=== PATIENT | male | born 1955 | race Caucasian/White ===

== ENCOUNTER 2023-04-20 14:26 | Emergency (ER) | payer MEDICARE, OTHER, SELFPAY ==
[2023-04-20 14:29] VITALS: BP 91/52; PULSE 103; RESP 16; TEMP 36.4; O2SAT 100; BMI 27.7
--- NOTE | 2023-04-20 14:32 | XR_ITS ---
The [place] [address] Patient Name: STU [place] MRN: [id number] date: 1955 Sex: M Assigned Patient Location: ER Current Patient Location: ED.MAIN Accession/Order Number: [id number] Exam Date: 04/20/2023 14:30 Report Date: 04/20/2023 15:11 At the request of: MIKE RUIZ Procedure: XR hand LT min 3V STUDY: XR wrist LT min 3V, XR hand LT min 3V, [id number], [id number] HISTORY: laceration COMPARISON: None FINDINGS/IMPRESSION: No acute fracture, dislocation, or suspicious osseous lesion. Punctate mildly radiopaque focus projecting over the soft tissues of the radial aspect of the wrist could represent a foreign body versus chronic soft tissue calcification. No other potential radiopaque foreign body demonstrated. Moderate osteoarthritis at the first carpometacarpal joint Electronically authenticated by: SD BLACK Date: 04/20/2023 15:11
--- NOTE | 2023-04-20 14:32 | XR_ITS ---
The [place] [address] Patient Name: STU GARCIA MRN: [id number] date: 1955 Sex: M Assigned Patient Location: ER Current Patient Location: ED.MAIN Accession/Order Number: [id number] Exam Date: 04/20/2023 14:30 Report Date: 04/20/2023 15:11 At the request of: MIKE RUIZ Procedure: XR wrist LT min 3V STUDY: XR wrist LT min 3V, XR hand LT min 3V, [id number], [id number] HISTORY: laceration COMPARISON: None FINDINGS/IMPRESSION: No acute fracture, dislocation, or suspicious osseous lesion. Punctate mildly radiopaque focus projecting over the soft tissues of the radial aspect of the wrist could represent a foreign body versus chronic soft tissue calcification. No other potential radiopaque foreign body demonstrated. Moderate osteoarthritis at the first carpometacarpal joint Electronically authenticated by: SD BLACK Date: 04/20/2023 15:11
--- NOTE | 2023-04-20 14:34 | ED_ITS ---
HPI - General Adult General Chief complaint: Wound/Laceration Stated complaint: LAC L ARM Time Seen by Provider: 04/20/23 14:31 Source: patient Mode of arrival: walk-in Limitations: no limitations History of Present Illness HPI narrative: patient is a 67-year-old male who presents to the emergency department for the evaluation of a laceration to the left index finger and left wrist. He states he cut himself with a circular saw just prior to arrival. Bleeding is controlled at this time. He thinks his last tetanus may have been five years ago but he is not sure. No other associated injuries. No medications taken prior to arrival. He is right-hand dominant. He reports difficulty extending the left 5th finger Related Data Previous Rx's Medication Instructions Recorded cephalexin 500 mg capsule 500 mg PO Q8H 10 days #30 caps 04/20/23 hydrocodone 5 mg-acetaminophen 325 1 tab PO Q6H PRN pain #12 tabs 04/20/23 mg tablet ondansetron 4 mg disintegrating 4 mg PO Q6H PRN nausea and 04/20/23 tablet vomiting #12 tabs Allergies Allergy/AdvReac Type Severity Reaction Status Date / Time No Known Drug Allergies Allergy Verified 04/20/23 14:28 Review of Systems ROS Constitutional Denies: fever or chills Ears, nose, mouth, and throat Denies: throat pain Cardiovascular Denies: chest pain Respiratory Denies: shortness of breath or cough Gastrointestinal Denies: nausea or vomiting Musculoskeletal Reports: extremity pain; Denies: back pain or neck pain Integumentary/Breast Denies: rash Hematologic/Lymphatic Denies: easy bruising PFSH PFSH Social History Smoking status: Never smoker Exam Narrative Exam Narrative: Gen.: Awake, alert, in no distress Head: Normocephalic, atraumatic ENT: Moist mucous membranes Respiratory: No respiratory distress, lungs clear bilaterally Cardio: Regular rate and rhythm Gastrointestinal: Abdomen is soft, nondistended and nontender to palpation Extremities: 2.5 cm laceration at the base of the left 2nd digit, proximal phalanx just distal to the MCP joint of the 2nd finger. Laceration is on the dorsum of the finger, not circumferential with no evidence of flexor tendon deficit. Patient is able to extend the left 2nd digit, no obvious extensor tendon deficit or visualization in the laceration. Laceration to the left dorsal wrist proximal to the wrist joint. Limited flexion and extension at the left wrist with inability to extend the left 5th finger. Bleeding is controlled. Laceration extends through the subcutaneous tissue, there is no obvious bony visualization. No extension of the laceration to the volar aspect of the wrist, radial pulses intact. Psych: Normal mood and affect Neuro: No focal neuro deficit Skin: Warm, dry Constitutional Vital Signs, click to edit/add: Last Vital Signs Temp 97.6 F 04/20/23 14:29 Pulse 103 H 04/20/23 14:29 Resp 16 04/20/23 14:29 BP 91/52 04/20/23 14:29 Pulse Ox 100 04/20/23 14:29 O2 Del Method Room Air 04/20/23 14:29 Course Vital Signs Vital signs: Vital Signs Temperature 97.6 F 04/20/23 14:29 Pulse Rate 103 H 04/20/23 14:29 Respiratory Rate 16 04/20/23 14:29 Blood Pressure 91/52 04/20/23 14:29 Pulse Oximetry 100 04/20/23 14:29 Oxygen Delivery Method Room Air 04/20/23 14:29 Temperature 97.6 F 04/20/23 14:29 Pulse Rate 103 H 04/20/23 14:29 Respiratory Rate 16 04/20/23 14:29 Blood Pressure 91/52 04/20/23 14:29 Pulse Oximetry 100 04/20/23 14:29 Oxygen Delivery Method Room Air 04/20/23 14:29 Medical Decision Making MDM Narrative Medical decision making narrative: x-ray show no evidence of fracture or dislocation. I discussed the case with Dr. Beaulieu for orthopedics, plan will be to clean, irrigate and close the lacerations. He will follow up with Dr. Beaulieu tomorrow morning between 8:30 and 9 AM in the office in [place] for definitive management given the patient's concern for nerve/tendon involvement. Patient verbalizes understanding. He will be nothing by mouth after midnight. Patient was lightheaded on arrival to the Emergency Room, he was given IV fluids, IV Ancef and is feeling much better after laceration repair and fluids. tetanus updated in the Emergency Room patient will be started on Keflex, [place] for home. He was placed in a metal forearm splint with dressing, please see procedure note for details, he has no evidence of vascular compromise at discharge. Return to the Emergency Room if symptoms change or worsen. Laceration repair: Done under sterile conditions. The use of Shur-Clens prep the area. Local injection with lidocaine 1% was used, approximately 5 cc to the left 2nd finger laceration. two percent lidocaine with epi was used to anesthetize the left wrist laceration, approximately twelve mL's. The wound was irrigated copiously with normal saline. The wound was explored there was no evidence of foreign material. The laceration was approximated with 3-0 nylon. 5 simple interrupted sutures were placed in the left 2nd finger laceration. ten sutures were placed loosely to tack together the laceration of the left wrist. Patient tolerated the procedure well. Medical Records Medical records reviewed: Yes I reviewed the patient's medical records Imaging Data XR hand/wrist: Attestation: I have reviewed the pertinent imaging results. Radiologist's impression: Procedure: XR hand LT min 3V STUDY: XR wrist LT min 3V, XR hand LT min 3V, [id number], [id number] HISTORY: laceration COMPARISON: None FINDINGS/IMPRESSION: No acute fracture, dislocation, or suspicious osseous lesion. Punctate mildly radiopaque focus projecting over the soft tissues of the radial aspect of the wrist could represent a foreign body versus chronic soft tissue calcification. No other potential radiopaque foreign body demonstrated. Moderate osteoarthritis at the first carpometacarpal joint Electronically authenticated by: SD BLACK Date: 04/20/2023 15:11 xr wrist: Attestation: I have reviewed the pertinent imaging results. Radiologist's impression: Procedure: XR wrist LT min 3V STUDY: XR wrist LT min 3V, XR hand LT min 3V, [id number], [id number] HISTORY: laceration COMPARISON: None FINDINGS/IMPRESSION: No acute fracture, dislocation, or suspicious osseous lesion. Punctate mildly radiopaque focus projecting over the soft tissues of the radial aspect of the wrist could represent a foreign body versus chronic soft tissue calcification. No other potential radiopaque foreign body demonstrated. Moderate osteoarthritis at the first carpometacarpal joint Electronically authenticated by: SD BLACK Date: 04/20/2023 15:11 Discharge Plan Discharge Chief Complaint: Wound/Laceration Clinical Impression: Laceration of left wrist, Finger laceration, Extensor tendon laceration of left wrist with open wound Patient Disposition: Home, Self-Care Time of Disposition Decision: 15:54 Condition: Good Prescriptions / Home Meds: New hydrocodone-acetaminophen 5-325 mg tablet 1 tab PO Q6H PRN (Reason: pain) Qty: 12 0RF Rx Instructions: DX: M25.532 cephalexin 500 mg capsule 500 mg PO Q8H 10 Days Qty: 30 0RF ondansetron 4 mg tablet,disintegrating 4 mg PO Q6H PRN (Reason: nausea and vomiting) Qty: 12 0RF Instructions: Laceration (ED) Additional Instructions: follow-up with Dr. Beaulieu tomorrow in [place] between 8:30 and 9 AM, go to the office and they are expecting you. Do not eat or drink after midnight tonight. Keep the dressing intact here left wrist, start antibiotics this evening. Dr. Beaulieu's office:[facility] [address], [place] [address] Stand Alone Forms: Portal Instructions Referrals: TA MARIN [Primary Care Provider] - 1 week
[2023-04-20] MEDS: 0.9 % SODIUM CHLORIDE 1,000 ML 1000 ML IV (15:04)
[2023-04-20] MEDS: LIDOCAINE HCL 2%-EPINEPHRINE 1:200,000 20 ML MDV INJ (15:05)
[2023-04-20] MEDS: LIDOCAINE HCL 1% 100 MG/10 ML MDV INJ (15:05)
[2023-04-20] MEDS: BACITRACIN 0.9 GM PACKET 3 PACKET TOPICAL (15:53)
[2023-04-20] MEDS: ADACEL DIPH,PERTUSS(ACELL),TET VAC/PF 0.5 ML ADULT SYRINGE IM (16:05)
[2023-04-20 16:12] VITALS: BP 110/55; PULSE 67; RESP 18; O2SAT 99
== END 2023-04-20 16:25 | disposition home or self-care (01) ==
PROVIDERS: Emergency Provider Emergency Medicine; PCP Internal Medicine
DX: S66.822A Laceration of other specified muscles, fascia and tendons at wrist and hand level, left hand, initial encounter (principal); S61.211A Laceration without foreign body of left index finger without damage to nail, initial encounter; Z23 Encounter for immunization; W27.0XXA Contact with workbench tool, initial encounter
CPT/HCPCS: 12001; 12004; 73110; 73130; 90471; 90715; 96374; 99284

== ENCOUNTER 2025-02-07 15:23 | Inpatient (IN) | payer MEDICARE, OTHER, SELFPAY ==
[2025-02-07] VITALS (17 sets, daily range): BP systolic 133–180; BP diastolic 66–85; PULSE 70–91; TEMP 36.4–36.8; O2SAT 94–97; BMI 29.0; BMI 26.3
--- NOTE | 2025-02-07 15:31 | CT_ITS ---
The [address] [address] Patient Name: STU [place] MRN: [id number] date: 1955 Sex: M Assigned Patient Location: ER Current Patient Location: ED.MAIN Accession/Order Number: [id number] Exam Date: 02/07/2025 15:45 Report Date: 02/07/2025 15:51 At the request of: DEBBY COLON NP Procedure: CT stroke head/brain wo con CT BRAIN WITHOUT CONTRAST: CLINICAL HISTORY: TIA sx, slurred speech COMPARISON: None TECHNIQUE: Contiguous axial unenhanced images were obtained through the brain. This CT exam was performed using one or more following dose reduction techniques: Automated exposure control, adjustment of the mA and/or kV according to patient size, or use of iterative reconstruction technique. FINDINGS: There is no evidence of midline shift, intra or extra-axial fluid collection, hemorrhage or CT evidence of acute large vascular distribution stroke. Visualized intraorbital contents appear unremarkable. Visualized paranasal sinuses are clear. The surrounding soft tissues are normal. CT/CT stroke head/brain wo con IMPRESSION: NO ACUTE INTRACRANIAL ABNORMALITY. Discussed with ER clinician over telephone 1551 hours 02/07/2025 Impression dictated by: Shukri Cardenas M.D. 02/07/2025 3:51 PM Dictation Location: [place] [address] Electronically authenticated by: [id number] Y Date: 02/07/2025 15:51
--- NOTE | 2025-02-07 15:31 | ECG_ITS ---
The [facility] Test Date: 2025-02-07 Pat Name: STU GARCIA Department: Room: - Gender: Male Turning Lathe Tender: : 1955 Requested By: [id number] Order Number: [id number] Reading MD: ISAIAH PAREDES Measurements Intervals [place] Rate: 81 P: 58 HI: 172 QRS: 7 QRSD: 84 T: 85 QT: 360 QTc: 397 Interpretive Statements 1100 Sinus rhythm 1470 with occasional supraventricular premature complexes [address] depression [address] & Twave abnormality 9140 abnormal rhythm ECG No previous ECG available for comparison Electronically Signed On 02-11-2025 16:13:48 EDT by ISAIAH PAREDES
--- NOTE | 2025-02-07 15:33 | ED_ITS ---
HPI HPI - General Adult General Chief complaint: Weakness Stated complaint: SLURRED SPEACH, FEARED STROKE Time Seen by Provider: 02/07/25 15:25 Source: patient Mode of arrival: walk-in Limitations: no limitations History of Present Illness HPI narrative: Patient is a 69-year-old male who presents to the emergency department today for evaluation concerns for an episode of slurred speech. He states at 2:30 this afternoon he came in from working and had slurred speech. He mentions the slurred speech lasted until he arrived in the ER which in total was about an hour. He reports his jaw feels a little off but otherwise reports he is back at his neurologic baseline. He denies any associated symptoms of headache, blurred vision, paresthesias, weakness, loss of movement to extremities. His denies any facial droops. No chest pain or shortness of breath. He denies any dizziness or syncope. No abdominal pain or nausea/vomiting. He denies any significant cardiovascular events including CT or CVA. Denies any risk factors including hypertension, hyperlipidemia, or diabetes. He states he is a non- smoker. He does endorse a history of hypothyroid and is on Synthroid for this. Blood glucose on arrival to the ER is 114. Related Data Home Medications ?Medication ?Instructions ?Recorded ?Confirmed levothyroxine 150 mcg tablet mcg 02/07/25 losartan 100 mg tablet mg 02/07/25 Previous Rx's ?Medication ?Instructions ?Recorded cephalexin 500 mg capsule 500 mg PO Q8H 10 days #30 ca ps 04/20/23 hydrocodone 5 mg-acetaminophen 325 1 tab PO Q6H PRN pa in #12 tabs 04/20/23 mg tablet ondansetron 4 mg disintegrating 4 mg PO Q6H PRN nausea and 04/20/23 tablet vomiting #12 tabs Allergies Allergy/AdvReac Type Severity Reaction Status Date / Time No Known Drug Allergies Allergy Verified 02/07/25 15:27 Opioid HPI Opioid Management Most Recent Opioid Data: Last Pain Scale 0 Today, 15:28 Review of Systems ROS Status of ROS 10 or more systems reviewed and unremark able except as noted in history and below [facility] PFS Medical History (Updated 02/07/25 @ 17:22 by Lisa Allen NP) Hypothyroid ?E03.9 - Hypothyroidism, unspecified (ICD-10) Social History Smoking status: Never smoker Little interest or pleasure in doing things: not at all Feeling down, depressed, or hopeless: not at all Exam Narrative Exam Narrative: Constituational: Awake/ alert, no apparent distress, well hydrated HENMT: normocephalic, external ears normal, no stridor, no trismus, moist oral mucous membranes and oropharynx normal Eyes: EOMI and conjunctivae normal Neck: ROM intact Chest: inspection of chest normal Respiratory: Normal respiratory effort, clear to auscultation bilaterally Cardio: regular rate and regular rhythm GI: soft to palpation and non-tender Back: nontender MSK: ROM intact, +NVI Skin: no rashes or petechiae Neuro: no focal deficits Psych: mental status grossly normal Constitutional Vital Signs, click to edit/add: Last Vital Signs Temp 98.2 F 02/07/25 15:28 Pulse 73 02/07/25 16:40 Resp 14 02/07/25 16:40 BP 139/66 02/07/25 16:30 Pulse Ox 96 02/07/25 16:40 O2 Del Method Room Air 02/07/25 15:28 Course Vital Signs Vital signs: Vital Signs Temperature 98.2 F 02/07/25 15:28 Pulse Rate 87 02/07/25 15:28 Respiratory Rate 18 02/07/25 15:28 Blood Pressure 180/85 H 02/07/25 15:28 Pulse Oximetry 97 02/07/25 15:28 Oxygen Delivery Method Room Air 02/07/25 15:28 Temperature 98.2 F 02/07/25 15:28 Pulse Rate 73 02/07/25 16:40 Respiratory Rate 14 02/07/25 16:40 Blood Pressure 139/66 02/07/25 16:30 Pulse Oximetry 96 02/07/25 16:40 Oxygen Delivery Method Room Air 02/07/25 15:28 Medical Decision Making MDM Narrative Medical decision making narrative: The patient is a well-appearing 69-year-old male who presented to the emergency department today for evaluation concerns for slurred speech. Initial examination vital signs overall stable. No focal neurologic findings on exam. Historically symptoms do seem consistent with TIA. Plain CT imaging of head without critical findings. Unable to obtain CT angio of head and neck due to elevated renal function with creatinine of 2.2. Patient reportedly with no known history of CKD and states he is on losartan 100 mg daily for hypertension. Labs otherwise stable as below. EKG without acute changes and troponin is negative x 1. He does appear euvolemic on exam. Clinical impression TIA and JOSE MIGUEL. did discuss patient's condition with teleneurologist Dr. Bolivar [phone] whom recommended admit for MRI brain without contrast and MRA angio in addition to carotid Dopplers and echo. Received recommendations for medical therapy to give 324 mg aspirin x 1 dose followed by low-dose 81 mg aspirin daily. Will hold off on Plavix per instructions of teleneurologist at this time. Did subsequently discuss patient's condition with the hospitalist Dr. Mcknight [id number] -> accepts patient for admission and did relay recommendations from teleneurologist with the hospitalist including for imaging and medical therapy. Discussed the above findings and recommendations with the patient. He additionally is agreeable with the plan to be mated for further care of the above. Medical Records Medical records reviewed: Yes I reviewed the patient's medical records Lab Data Lab results reviewed: Yes I reviewed the patient's lab results Labs: Lab Results 02/07/25 02/07/25 Range/Units 15:31 15:40 WBC 6.5 (4.0-11.0) 10^3/uL RBC 5.02 (4.70-6.10) 10^6/uL Hgb 14.7 (14.0-18.0) g/dL Hct 42.7 (42.0-54.0) % MCV 85.1 (80.0-94.0) fL MCH 29.3 (25.9-34.0) pg MCHC 34.4 (29.9-35.2) g/dL RDW 13.2 (11.0-15.0) % Plt Count 217 (150-450) 10^3/uL MPV 9.8 (9.5-13.5) fL Neut % (Auto) 65.2 (43.0-75.0) % Lymph % (Auto) 24.1 (20.5-60.0) % [place] % (Auto) 8.0 (1.7-12.0) % Eos % (Auto) 1.5 (0.9-7.0) % Baso % (Auto) 0.9 (0.2-2.0) % Neut # (Auto) 4.2 (1.4-6.5) 10^3/uL Lymph # (Auto) 1.6 (1.2-3.8) 10^3/uL [place] # (Auto) 0.5 (0.3-0.8) 10^3/uL Eos # (Auto) 0.1 (0.0-0.7) 10^3/uL Baso # (Auto) 0.1 (0.0-0.1) 10^3/uL Abs Immat Gran (auto) 0.02 (0.00-0.03) 10^3/uL Imm/Tot Granulo (auto) 0.3 (0.0-0.5) % Sodium 143 (136-145) mmol/L Potassium 4.5 (3.5-5.1) mmol/L Chloride 105 (98-107) mmol/L Carbon Dioxide 26.2 (21.0-32.0) mmol/L Anion Gap 16.3 BUN 46.0 H (7.0-18.0) mg/dL Creatinine 2.29 H (0.70-1.30) mg/dL Est GFR ( Amer) 34 L (>=60 mL/min/1.73m^2) Est GFR (Non-Af Amer) 28 L (>=60 mL/min/1.73m^2) BUN/Creatinine Ratio 20.1 Glucose 105 (74-106) mg/dL Calcium 9.2 (8.5-10.1) mg/dL Total Bilirubin 0.7 (0.2-1.0) mg/dL AST 31 (15-37) U/L ALT 40 (16-63) U/L Alkaline Phosphatase 71 (46-116) U/L Troponin I High Sens 16.5 (4.0-76.1) pg/mL Total Protein 7.4 (6.4-8.2) g/dL Albumin 4.1 (3.4-5.0) g/dL Globulin 3.3 g/dL Albumin/Globulin Ratio 1.2 POC Glucose 114 H (74-106) mg/dL Imaging Data CT scan - head: Attestation: I have reviewed the pertinent imaging results. Radiologist's impression: ITS Impressions Brain CT 02/07/25 15:31 IMPRESSION: NO ACUTE INTRACRANIAL ABNORMALITY. Discussed with ER clinician over telephone 1551 hours 02/07/2025 Impression dictated by: Shukri [place] M.D. 02/07/2025 3:51 PM Dictation Location: [place] [address] Electronically authenticated by: [id number] Y Date: 02/07/2025 15:51 ECG Data Attestation: I personally reviewed and interpreted this ECG as follows: (SR with HR 81, no acute/ischemic changes) Discharge Plan Discharge Patient Disposition: Still a Patient
[2025-02-07 16:07] LABS: Hematocrit 42.7 % (42.0-54.0); Hemoglobin 14.7 g/dL (14.0-18.0); Immature Granulocytes Abs Auto 0.02 10^3/uL (0.00-0.03); Immature Granulocytes Pct Auto 0.3 % (0.0-0.5); Lymphocytes Absolute Auto 1.6 10^3/uL (1.2-3.8); Mean Corpuscular HGB Conc 34.4 g/dL (29.9-35.2); Mean Corpuscular Hemoglobin 29.3 pg (25.9-34.0); Mean Corpuscular Volume 85.1 fL (80.0-94.0); Platelet Count 217 10^3/uL (150-450); Red Blood Count 5.02 10^6/uL (4.70-6.10); White Blood Count 6.5 10^3/uL (4.0-11.0)
--- NOTE | 2025-02-07 16:15 | PC.NURSE ---
attempt to use stroke consult computer, ER unit not available for use
[2025-02-07 16:33] LABS: Alanine Aminotransferase 40 U/L (16-63); Albumin Globulin Ratio 1.2; Albumin Level 4.1 g/dL (3.4-5.0); Alkaline Phosphatase 71 U/L (46-116); Anion Gap 16.3; Aspartate Amino Transferase 31 U/L (15-37); Blood Urea Nitrogen 46.0 mg/dL (7.0-18.0); Calcium 9.2 mg/dL (8.5-10.1); Carbon Dioxide 26.2 mmol/L (21.0-32.0); Chloride 105 mmol/L (98-107); Estimated GFR (African America 34 (>=60 mL/min/1.73m^2); Estimated GFR (Non-African Ame 28 (>=60 mL/min/1.73m^2); Globulin 3.3 g/dL; Glucose 105 mg/dL (74-106); Potassium 4.5 mmol/L (3.5-5.1); Sodium 143 mmol/L (136-145); Total Protein 7.4 g/dL (6.4-8.2)
--- NOTE | 2025-02-07 16:44 | PC.NURSE ---
Stroke consult called to [facility], awaiting call back, computer obtained from Med Surg for use
[2025-02-07] MEDS: ASPIRIN 81 MG TAB.CHEW 324 MG PO (16:48)
--- NOTE | 2025-02-07 17:43 | PC.NURSE ---
per Gerard GRANADOS, Tele stroke no longer needed
--- NOTE | 2025-02-07 18:24 | US_ITS ---
[address] [address] Patient Name: STU [place] MRN: [id number] date: 1955 Sex: M Assigned Patient Location: MS Current Patient Location: MS Accession/Order Number: [id number] Exam Date: 02/07/2025 20:08 Report Date: 02/07/2025 20:10 At the request of: CHAVA JARAMILLO MD Procedure: US renal BI Bilateral Renal Ultrasound HISTORY: Renal failure COMPARISON: None RIGHT kidney measures 10.9 cm cm. LEFT kidney measures 10.5 cm cm. Hydronephrosis: None RENAL STONE: No shadowing renal calculus is seen. RENAL LESIONS: Bilateral benign anechoic cyst identified. Largest on the right measures up to 4.4 cm largest on the left measures up to 5.3 cm. URINARY BLADDER: Bilateral ureteral jets identified. REPRODUCTIVE STRUCTURES Not assessed IMPRESSION : No hydronephrosis. Bilateral benign anechoic renal cysts. Impression dictated by: Parminder Lynn M.D. 02/07/2025 8:10 PM Dictation Location: [place] [address] Electronically authenticated by: [id number] Y Date: 02/07/2025 20:10
[2025-02-07] MEDS: ATORVASTATIN CALCIUM 40 MG TABLET 80 MG PO (21:04)
[2025-02-07] MEDS: ENOXAPARIN SODIUM 40 MG/0.4 ML SYRINGE SUBQ (21:05)
[2025-02-08] VITALS (18 sets, daily range): BP systolic 123–165; BP diastolic 62–86; PULSE 58–77; TEMP 36.3–36.6; O2SAT 94–96
[2025-02-08] MEDS: LEVOTHYROXINE SODIUM 100 MCG TABLET 150 MCG PO (06:15)
[2025-02-08 06:54] LABS: Hematocrit 41.9 % (42.0-54.0); Hemoglobin 13.8 g/dL (14.0-18.0); Immature Granulocytes Abs Auto 0.02 10^3/uL (0.00-0.03); Immature Granulocytes Pct Auto 0.4 % (0.0-0.5); Lymphocytes Absolute Auto 1.5 10^3/uL (1.2-3.8); Mean Corpuscular HGB Conc 32.9 g/dL (29.9-35.2); Mean Corpuscular Hemoglobin 28.5 pg (25.9-34.0); Mean Corpuscular Volume 86.6 fL (80.0-94.0); Platelet Count 194 10^3/uL (150-450); Red Blood Count 4.84 10^6/uL (4.70-6.10); White Blood Count 4.9 10^3/uL (4.0-11.0)
[2025-02-08 07:03] LABS: Glucose Urine UA NEGATIVE (NEGATIVE)
[2025-02-08 07:08] LABS: Alanine Aminotransferase 38 U/L (16-63); Albumin Globulin Ratio 1.1; Albumin Level 3.7 g/dL (3.4-5.0); Alkaline Phosphatase 68 U/L (46-116); Anion Gap 15.3; Aspartate Amino Transferase 27 U/L (15-37); Blood Urea Nitrogen 40.0 mg/dL (7.0-18.0); Calcium 8.7 mg/dL (8.5-10.1); Carbon Dioxide 26.2 mmol/L (21.0-32.0); Chloride 104 mmol/L (98-107); Cholesterol 200 mg/dL (<=200); Estimated GFR (African America 46 (>=60 mL/min/1.73m^2); Estimated GFR (Non-African Ame 38 (>=60 mL/min/1.73m^2); Globulin 3.3 g/dL; Glucose 130 mg/dL (74-106); HDL Cholesterol 35 mg/dL (40-60); Magnesium 2.2 mg/dL (1.8-2.4); Potassium 4.5 mmol/L (3.5-5.1); Sodium 141 mmol/L (136-145); Total Protein 7.0 g/dL (6.4-8.2); Triglycerides 317 mg/dL (<=150); VLDL CHOLESTEROL 63.4 mg/dL
[2025-02-08 07:10] LABS: Cannabinoid Screen Urine NEGATIVE (NEGATIVE); Cast Seen? NONE SEEN #/LPF (NONE SEEN); Crystals Seen? None Seen #/HPF (None Seen); Methamphetamines Screen Urine NEGATIVE (NEGATIVE); Urine Culture Indicated NO
[2025-02-08 07:11] LABS: Tricyclic Antidepressant Urine NEGATIVE (NEGATIVE)
--- NOTE | 2025-02-08 08:00 | ECG_ITS ---
The [facility] Test Date: 2025-02-08 Pat Name: STU [place] Department: Room: 2311 Gender: Male Call Or Contact Centre Operator: : 1955 Requested By: [id number] Order Number: [id number] Reading MD: ISAIAH PAREDES Measurements Intervals [place] Rate: 61 P: 56 VT: 185 QRS: 30 QRSD: 86 T: 130 QT: 414 QTc: 420 Interpretive Statements SINUS RHYTHM Septal infarct age-indeterminate cannot be ruled out MODERATE T-WAVE ABNORMALITY, CONSIDER LATERAL ISCHEMIA [-0.1+ mV T WAVE IN I/aVL/V5/V6] Compared to ECG 02/07/2025 15:31:32 T-wave abnormality now present Possible ischemia now present Electronically Signed On 02-11-2025 16:19:55 EDT by ISAIAH PAREDES
[2025-02-08] MEDS: ASPIRIN 81 MG TAB.CHEW PO (08:12)
[2025-02-08] MEDS: 0.9 % SODIUM CHLORIDE 1,000 ML 100 ML IV ×2 (08:13→17:32)
--- NOTE | 2025-02-08 09:41 | P.HP_ITS ---
HPI H&P: HPI History of Present Illness Chief complaint: SLURRED SPEACH, FEARED STROKE, TIA Narrative: Mr. Arroyo is a 69-year-old gentleman with a history of hypothyroidism and hypertension. Patient came in with complaint of slurred speech and facial weakness. Patient has been working outside helping his neighbor fixing his pump. Patient reported feeling that his speech is slurred. This was confirmed by his . Patient reported also that he is right lower face also with weak and unable to left when smiling. Symptoms subsided and resolved by the time the patient arrived to the emergency room department. No change in mental status, confusion or disorientation. No fever or chills. No weakness or numbness. No prior history of stroke. Opioid HPI Opioid Management Most Recent Pain and Opioid Data: Last Pain Scale 0 02/07/25, 15:28 Last Pain Assessment 02/07/25, 17:55 Last ORT Total Score 0 02/07/25, 17:55 Last ORT Risk Category Low Risk 02/07/25, 17:55 Ur Phencyclidine Scrn, (NEGATIVE) Negative , 06:36 Review of Systems ROS Status of ROS 10 or more systems reviewed and unremark able except as noted in history and below PFSH PFSH Medical History (Updated 02/08/25 @ 09:44 by Jose Mcknight MD) Hypothyroid ?E03.9 - Hypothyroidism, unspecified (ICD-10) Surgical History (Updated 02/07/25 @ 17:48 by Belen Dillon) H/O wrist surgery ?Z98.890 - Other specified postprocedural states (ICD-10) Family History (Updated 02/07/25 @ 17:50 by Belen Dillon) Father Family history of hypertension Social History (Updated 02/07/25 @ 17:52 by Belen Dillon) Within the past year, how often did you have a drink containing alcohol: never Within the past year, how often did you have six or more drinks on one occasion: never Score interpretation: A score less than 4 is consistent with normal alcohol consumption. Smoking status: Former smoker Non-prescribed substance use: denies use Previous occupational history: [employer]- retired Highest level of school completed/degree received: 11th grade Are you now , , , , never or living with a partner: In a typical week, how many times do you talk on the telephone with family, friends, or neighbors: 3 or more times per week How often do you get together with friends or relatives: 3 or more times per week How often do you attend episcopalian or sabianist services: never Do you belong to any clubs or organizations such as episcopalian groups unions, fraternal or athletic groups, or school groups: no Total score: 2 Score interpretation: A score of greater than or equal to 2 indicates the lowest level of social isolation. Little interest or pleasure in doing things: not at all Feeling down, depressed, or hopeless: not at all Feel stressed/tense/nervous/anxious/difficulty sleeping: not at all Do you think of yourself as: straight/heterosexual Gender Identity: male Meds Home Medications and Allergies Home Medications ?Medication ?Instructions ?Recorded ?Confirmed ?Type levothyroxine 150 mcg tablet 150 mcg PO DAILY 02/07/25 02/07/25 History losartan 100 mg tablet 100 mg PO DAILY 02/07/2506/24 History Allergies Allergy/AdvReac Type Severity Reaction Status Date / Time No Known Drug Allergies Allergy Verified 02/07/25 15:27 Exam Narrative Exam Narrative: [pt is awake and alert. oriented to place, time and person HEENT: [place] conjunctiva and NL buccal mucosa Neck: Supple, no tenderness Endocrine: No Thyromegaly. Vascular: No JVD or carotid bruit. Lymphatic: No cervical lymphadenopathy. Chest: CTA no DTP. Heart RRR, no extra sound or murmur. Abd: Soft, no tenderness, no rebound and no rigidity. Increase abd girth therefore clinically I could not exclude the possibility of intra abd mass or organomegaly. LE: No cyanosis or clubbing, no varices or edema. Neuro: A A O. Nl speech, comprehension and attention. Nl and symetrical motor and tone examination through out. No nystagmus. Normal finger nose testing. No ataxia. No visual loss. No sensory loss. []] Constitutional Vital Signs, click to edit/add: Last Vital Signs Temp 97.8 F 02/08/25 07:34 Pulse 62 02/08/25 07:48 Resp 18 02/08/25 07:34 BP 153/79 H 02/08/25 07:34 Pulse Ox 95 02/08/25 07:34 O2 Del Method Room Air 02/08/25 07:34 Results Labs Labs: Short CBC 02/07/25 02/08/25 Range/Units 15:40 06:45 WBC 6.5 4.9 (4.0-11.0) 10^3/uL Hgb 14.7 13.8 L (14.0-18.0) g/dL Hct 42.7 41.9 L (42.0-54.0) % Plt Count 217 194 (150-450) 10^3/uL BMP 02/07/25 02/08/25 15:40 06:45 Sodium 143 141 Potassium 4.5 4.5 Chloride 105 104 Carbon Dioxide 26.2 26.2 BUN 46.0 H 40.0 H Creatinine 2.29 H 1.77 H Glucose 105 130 H Calcium 9.2 8.7 Liver Function 02/07/25 02/08/25 Range/Units 15:40 06:45 Total Bilirubin 0.7 0.5 (0.2-1.0) mg/dL AST 31 27 (15-37) U/L ALT 40 38 (16-63) U/L Alkaline Phosphatase 71 68 (46-116) U/L Albumin 4.1 3.7 (3.4-5.0) g/dL Urine 02/07/25 Range/Units 06:36 Urine Color Lt. yellow (YELLOW) Urine Clarity Clear (CLEAR) Urine pH 6.0 (5.0-9.0) Ur Specific [place] 1.015 (1.005-1.025) Urine Protein Negative (NEG/TRACE) mg/dL Urine Glucose (UA) Negative (NEGATIVE) mg/dL Assessment and Plan Assessment and Plan (1) JOSE MIGUEL (acute kidney injury): (2) TIA (transient ischemic attack): Plan Acute and transient cerebral dysfunction. Likely transient ischemic attack. NIH now is 0. CTA of the head and neck could not be completed due to her kidney failure. Patient was started on aspirin daily and Lipitor 80 mg daily. Lipid profile was reviewed Order MRI and MRI of the brain without contrast, echocardiogram. Telemetry monitoring rule out any cardiac dysrhythmia. PT OT eval and treatment but patient does not have deficits at this time. Renal failure. No prior kidney function available in the system. Patient is not aware that he has kidney failure. His kidney failure improved overnight. UA is bland. No RBC or protein to suggest nephritic or nephrotic syndrome. Requested ultrasound which came back negative for obstructive uropathy but positive for cyst. I am hoping that his kidney failure is acute that we can correct over the next day or 2. Challenge with IV fluid infusion. Repeat BMP in AM. DVT prophylaxis Lovenox subcu.
[2025-02-08] MEDS: ATORVASTATIN CALCIUM 40 MG TABLET 80 MG PO (21:01)
[2025-02-08] MEDS: ENOXAPARIN SODIUM 40 MG/0.4 ML SYRINGE SUBQ (21:01)
[2025-02-09] VITALS (17 sets, daily range): BP systolic 141–153; BP diastolic 74–83; PULSE 61–81; TEMP 36.2–36.6; O2SAT 94–95
[2025-02-09] MEDS: LEVOTHYROXINE SODIUM 100 MCG TABLET 150 MCG PO (05:59)
[2025-02-09 06:41] LABS: Anion Gap 14.1; Blood Urea Nitrogen 28.0 mg/dL (7.0-18.0); Calcium 8.7 mg/dL (8.5-10.1); Carbon Dioxide 26.1 mmol/L (21.0-32.0); Chloride 108 mmol/L (98-107); Estimated GFR (African America 56 (>=60 mL/min/1.73m^2); Estimated GFR (Non-African Ame 46 (>=60 mL/min/1.73m^2); Glucose 129 mg/dL (74-106); Potassium 5.2 mmol/L (3.5-5.1); Sodium 143 mmol/L (136-145)
[2025-02-09] MEDS: ASPIRIN 81 MG TAB.CHEW PO (08:11)
--- NOTE | 2025-02-09 09:17 | P.PN_ITS ---
Progress Note: Subjective Subjective Interval history: Patient is feeling well. No additional neurological signs or symptoms. No chest pain. No confusion. No slurred speech. No abdominal pain. No nausea or vomiting. Exam Narrative Exam Narrative: [pt is awake and alert. oriented to place, time and person HEENT: [place] conjunctiva and NL buccal mucosa Neck: Supple, no tenderness Endocrine: No Thyromegaly. Vascular: No JVD or carotid bruit. Lymphatic: No cervical lymphadenopathy. Chest: CTA no DTP. Heart RRR, no extra sound or murmur. Abd: Soft, no tenderness, no rebound and no rigidity. Increase abd girth therefore clinically I could not exclude the possibility of intra abd mass or organomegaly. LE: No cyanosis or clubbing, no varices or edema. Neuro: A A O. Nl speech, comprehension and attention. Nl and symetrical motor and tone examination through out. []] Constitutional Vital Signs, click to edit/add: Last Vital Signs Temp 97.8 F 02/09/25 07:08 Pulse 72 02/09/25 08:08 Resp 18 02/09/25 07:08 BP 141/76 02/09/25 07:08 Pulse Ox 94 L 02/09/25 07:08 O2 Del Method Room Air 02/09/25 07:08 Progress Note: Objective Labs Labs: [facility] 02/09/25 06:13 Sodium 143 Potassium 5.2 H Chloride 108 H Carbon Dioxide 26.1 BUN 28.0 H Creatinine 1.50 H Glucose 129 H Calcium 8.7 Progress Note: A&P Assessment and Plan (1) JOSE MIGUEL (acute kidney injury): (2) TIA (transient ischemic attack): Plan Acute and transient cerebral dysfunction. Likely transient ischemic attack. NIH now is 0. CTA of the head and neck could not be completed due to her kidney failure. I discussed this case with [place] neurology group. Way[place] with the plan as outlined below Patient was started on aspirin daily and Lipitor 80 mg daily. Lipid profile was reviewed Order MRI and MRI of the brain without contrast, echocardiogram. Telemetry monitoring rule out any cardiac dysrhythmia. PT OT eval and treatment but patient does not have deficits at this time. Renal failure. No prior kidney function available in the system. Patient is not aware that he has kidney failure. His kidney failure improved overnight. UA is bland. No RBC or protein to suggest nephritic or nephrotic syndrome. Requested ultrasound which came back negative for obstructive uropathy but positive for cyst. I am hoping that his kidney failure is acute that we can correct over the next day or 2. Continue IV fluid infusion. Repeat BMP in AM. DVT prophylaxis Lovenox subcu.
[2025-02-09] MEDS: SODIUM CHLORIDE 0.45 % 1,000 ML 100 ML IV ×2 (09:28→18:55)
[2025-02-09] MEDS: ATORVASTATIN CALCIUM 40 MG TABLET 80 MG PO (21:49)
[2025-02-09] MEDS: ENOXAPARIN SODIUM 40 MG/0.4 ML SYRINGE SUBQ (21:49)
[2025-02-10] VITALS (16 sets, daily range): BP systolic 144–179; BP diastolic 66–96; PULSE 53–87; TEMP 36.3–37; O2SAT 91–97
--- NOTE | 2025-02-10 | MR_ITS ---
The [place] [id number] Patient Name: STU GARCIA MRN: [id number] date: 1955 Sex: M Assigned Patient Location: MS Current Patient Location: MS Accession/Order Number: [id number] Exam Date: 02/11/2025 00:11 Report Date: 02/11/2025 00:14 At the request of: CHAVA JARAMILLO MD Procedure: MR angio neck wo con MR angio neck wo con 02/10/2025 12:05 PM SIGNS AND SYMPTOMS: Acute right-sided facial weakness with slurred speech ^TIA PROTOCOL: Axial 3-D [id number] MRA of the neck with 3-D reconstructions COMPARISON: None FINDINGS: The common carotid arteries are normal in course and caliber. There is significant narrowing of the flow void within the right carotid bifurcation presumably representing severe stenosis of the origin of the right internal carotid artery. The left internal carotid artery appears to be occluded flattening. Void above the carotid bifurcation through the intracranial segments. The vertebral arteries are within normal limits. MR/MR angio neck wo con IMPRESSION: The left internal carotid artery appears to be occluded flattening. Void above the carotid bifurcation through the intracranial segments. There is significant narrowing of the flow void within the right carotid bifurcation presumably representing severe stenosis of the origin of the right internal carotid artery. Impression dictated by: Michael Messina M.D. 02/11/2025 12:14 AM Dictation Location: [place] [address] Electronically authenticated by: [id number] Y Date: 02/11/2025 00:14
--- NOTE | 2025-02-10 | MR_ITS ---
[address] [address] Patient Name: STU GARCIA MRN: [id number] date: 1955 Sex: M Assigned Patient Location: MS Current Patient Location: MS Accession/Order Number: [id number] Exam Date: 02/10/2025 12:59 Report Date: 02/10/2025 13:03 At the request of: CHAVA JARAMILLO MD Procedure: MR head/brain wo con EXAMINATION: MRI OF THE BRAIN WITHOUT CONTRAST CLINICAL HISTORY: TIA COMPARISON: CT head stroke protocol 02/07/2025 FINDINGS: There is evidence of a left posterior MCA distribution stroke along the left parietal lobe with corresponding T2 FLAIR hyperintensity. No hemorrhagic transformation. Otherwise mild scattered periventricular and subcortical T2 prolongation identified just of chronic small vessel disease. No shift midline structure basal cisterns are patent. No abnormal GRE signal. Major intracranial intravascular flow voids are preserved. Loss of left petrous and distal cervical ICA flow void. Remaining intracranial arterial flow was preserved. Trace fluid in both mastoids. Mild paranasal sinus mucosal thickening. .IMPRESSION: Acute to subacute stroke left parietal lobe. No hemorrhagic transformation. Otherwise mild chronic small vessel changes. Redemonstration loss of the left distal ICA flow void Impression dictated by: Shukri Cardenas M.D. 02/10/2025 1:03 PM Dictation Location: [place] [address] Electronically authenticated by: [id number] Y Date: 02/10/2025 13:03
--- NOTE | 2025-02-10 | MR_ITS ---
The [address] [address] Patient Name: STU GARCIA MRN: [id number] date: 1955 Sex: M Assigned Patient Location: MS Current Patient Location: MS Accession/Order Number: [id number] Exam Date: 02/10/2025 12:51 Report Date: 02/10/2025 12:59 At the request of: CHAVA JARAMILLO MD Procedure: MR angio head wo con MR angio head wo con 02/10/2025 12:05 PM SIGN OF SYMPTOMS: ^TIA COMPARISON: None. FINDINGS: Right petrous, cavernous and cervical ICAs are patent. Right carotid terminus patent. Left distal cervical ICA not visualized. Left petrous segments not visualized. Minimal flow-related signal left cavernous segment. Likely reconstitution left supraclinoid by intracranial and extracranial collaterals. Left carotid terminus patent. Dominant right A1 segment. Anterior communicating and both ACAs are patent. Hypoplastic left A1 segment. Proximal visualized MCAs are patent. Distal vertebral arteries join from basilar artery. Basilar tip and basilar bifurcation patent. Posterior cerebral arteries are patent. Curvilinear outpouching left supraclinoid ICA, this may represents a P-comm versus underlying aneurysm. MR/MR angio head wo con IMPRESSION: Left distal ICA occlusion extending to the level of the cavernous segment. Intracranial reconstitution identified left supraclinoid ICA due to collateralization.. No large vessel occlusion identified intracranially. Curvilinear vessel arising from the left posterior aspect superior cerebral ICA may represent a P-comm versus less likely aneurysm favor posterior communicating artery however the entirety is not visualized on this examination. Impression dictated by: Shukri Cardenas M.D. 02/10/2025 12:59 PM Dictation Location: [place] [address] Electronically authenticated by: [id number] Y Date: 02/10/2025 12:59
[2025-02-10] MEDS: LEVOTHYROXINE SODIUM 100 MCG TABLET 150 MCG PO (05:46)
[2025-02-10 06:22] LABS: Anion Gap 12.8; Blood Urea Nitrogen 24.0 mg/dL (7.0-18.0); Calcium 8.9 mg/dL (8.5-10.1); Carbon Dioxide 25.9 mmol/L (21.0-32.0); Chloride 109 mmol/L (98-107); Estimated GFR (African America >60 (>=60 mL/min/1.73m^2); Estimated GFR (Non-African Ame 51 (>=60 mL/min/1.73m^2); Glucose 117 mg/dL (74-106); Potassium 4.7 mmol/L (3.5-5.1); Sodium 143 mmol/L (136-145)
[2025-02-10] MEDS: ASPIRIN 81 MG TAB.CHEW PO (08:08)
--- NOTE | 2025-02-10 08:50 | CM.NOTE ---
Rounds made with Dr. Mcknight, pt will have MRI and echo for further evaluation. Possible discharge this afternoon. Pt is home with , pt able to perform all ADL's and does not use any assistive devices. Pt denies discharge needs at this time. Pt will f/u with neurology and PCP at discharge. Pt does verbalize if he would need to f/u with neurologist he wishes to stay local. Awaiting MRI results.
--- NOTE | 2025-02-10 10:17 | PM.DS1 ---
DS: Providers Provider Date of admission: 02/08/25 11:15 Primary care physician: SHIN JOHNSON Consults: 02/07/25 15:35 Consult to Telestroke Routine Reason for consultation: TIA sx 02/07/25 18:20 Occupational Therapy Eval and Treat Routine Reason for consultation: TIA Physical Therapy Eval and Treat Routine Reason for consultation: TIA DS: Diagnosis Discharge Diagnosis (1) JOSE MIGUEL (acute kidney injury): (2) TIA (transient ischemic attack): Plan As listed above and others that are not listed DS: Summary Hospital Course Hospital Course: Mr. Arroyo is a 69-year-old gentleman who came in with transient slurred speech and facial weakness. He was found to have the following: Acute and transient cerebral dysfunction. Likely transient ischemic attack. NIH now is 0. CTA of the head and neck could not be completed due to her kidney failure. I discussed this case with [facility]. Agreement with the plan as outlined below Patient was started on aspirin daily and Lipitor 80 mg daily. Lipid profile was reviewed Order MRI and MRI of the brain without contrast, echocardiogram. Telemetry monitoring rule out any cardiac dysrhythmia. PT OT eval and treatment but patient does not have deficits at this time. Patient will be discharged home on statin and aspirin pending MRI, MRI and echo report. Hypertension, poor control. Patient was on losartan 100 mg prior to admission daily. I had to stop this due to acute on chronic kidney failure. Instead I would start him on amlodipine 5 mg daily to be titrated in the outpatient setting to keep systolic between 135 and 145. Renal failure. Acute, suspect chronic element, chronic stage III. No prior kidney function available in the system. Patient is not aware that he has kidney failure. His kidney failure improved overnight. UA is bland. No RBC or protein to suggest nephritic or nephrotic syndrome. Requested ultrasound which came back negative for obstructive uropathy but positive for cyst. Acute kidney function has been corrected with IV fluid infusion and discontinuation of losartan. Creatinine is down to 1.3 and GFR is up to 50 which I suspect likely chronic DVT prophylaxis Lovenox subcu. Patient has multiple few medical issues as listed above and others that are not listed. All appear to be stable. I do not have any clear or strong clinical justification to extend inpatient hospitalization. Patient however will require close and frequent monitoring as well as additional work-up, investigation and therapeutic intervention that could take place from this point on post discharge. That is to prevent relapse, decompensation, rehospitalization and other medical implications. I instructed patient to ask her primary care doctor to obtain [facility] record entirely to address abnormalities seen on labs and imaging that I have and have not addressed during this hospitalization, follow-up on pending blood work, imaging and pathology is if available and to follow-up on needed medical care in the outpatient setting. Time Spent with Patient Time attestation: Total time spent providing and/or coordinating discharge services: Exam Constitutional Vital Signs, click to edit/add: Last Vital Signs Temp 98.3 F 02/10/25 08:09 Pulse 65 02/10/25 09:53 Resp 16 02/10/25 08:09 BP 164/88 H 02/10/25 08:09 Pulse Ox 94 L 02/10/25 08:09 O2 Del Method Room Air 02/10/25 08:09 DS: Data Data Completed and Pending Labs on day of discharge: Labs from last 24 hours 02/10/25 05:54 Sodium 143 Potassium 4.7 Chloride 109 H Carbon Dioxide 25.9 Anion Gap 12.8 BUN 24.0 H Creatinine 1.38 H Est GFR ( Amer) >60 Est GFR (Non-Af Amer) 51 L BUN/Creatinine Ratio 17.4 Glucose 117 H Calcium 8.9 Discharge Plan Discharge Disposition: Home, Self-Care Assessment: I may not have addressed or treated all of your medical illnesses or the abnormal blood work or imaging studies during this hospitalization. Please ask your primary care provider to obtain [facility] records entirely to follow up on all of the abnormal physical, laboratory, and imaging findings that I have not addressed. Please ask your primary care doctor to monitor your blood pressure and adjust the blood pressure medications accordingly. Please ask your primary care doctor to monitor your kidney function. Please return back to the emergency room or seek medical attention if your symptoms worsen or return. Discharging you from [facility] does not mean that your medical care ends here and now. You may still need additional monitoring, work up, investigation, and treatment plan to be handled from this point on by out patient providers including your primary care provider and specialists. For any medication question, please contact your retail pharmacist or your primary care provider. Thank you. Discharge Medications: New atorvastatin 40 mg Tablet 40 mg PO QHS Qty: 60 1RF aspirin 81 mg Tablet,Chewable 81 mg PO QD Qty: 60 2RF amlodipine 5 mg tablet 5 mg PO DAILY Qty: 30 1RF Continued levothyroxine 150 mcg tablet 150 mcg PO DAILY Discontinued losartan 100 mg tablet 100 mg PO DAILY Print Language: Polish Forms: Portal Instructions
--- NOTE | 2025-02-10 11:41 | CM.NOTE ---
Important Message From Medicare discussed with pt, pt verbalizes understanding and signs paper. Original given to pt and copy placed in pt's chart.
[2025-02-10] MEDS: AMLODIPINE BESYLATE 5 MG TABLET 2.5 MG PO (12:06)
--- NOTE | 2025-02-10 12:14 | SWNOTE1 ---
SW reviewed PT/OT and no needs identified at discharge.
--- NOTE | 2025-02-10 12:20 | CM.NOTE ---
Called Cardiology clinic and spoke with Kimmy about inpatient echo to be completed today and if possible for echo to be read today.
--- NOTE | 2025-02-10 14:57 | PM.EN ---
Event Note Event Note: MRI conformed evidence of acute parital CVA MRA shoed distal ICA occlusion. [facility] neuro team called me and requested to order A1c, carotid US and start pt on Plavix 75 mg daily for 21 days for now. possible extention beyond 21 days. I will follow neuro recommendation
--- NOTE | 2025-02-10 18:20 | CA_ITS ---
Patient Name: STU GARCIA MR#: [id number] : 1955 Exam Date: 02/10/2025 Ordering Doctor: CHAVA JARAMILLO ECHOCARDIOGRAM REPORT PROCEDURE: CA ECHO DOPPLER COMPLETE INDICATIONS: TIA, hypertension, acute kidney injury COMPARISON: None. DESCRIPTION: COMPLETE ECHOCARDIOGRAM Real-time transthoracic echocardiography with 2D, M-mode, spectral and color flow Doppler performed. QUALITY: Technical quality was adequate. LEFT VENTRICLE: Normal chamber size. Mild left ventricular hypertrophy. LV EF: Global left ventricular systolic function is normal; visually estimated ejection fraction is 55%. Unable to assess regional wall motion abnormality; consider contrast study for better delineation of endocardial borders. DIASTOLIC: Grade II diastolic dysfunction. ATRIAL SEPTUM: Visually appears intact. LEFT ATRIUM: Mild dilatation. RIGHT ATRIUM: Normal chamber size. RIGHT VENTRICLE: Normal chamber size. Normal right ventricular systolic function. TRICUSPID VALVE: Normal mobility and thickness. No stenosis with mild regurgitation. Doppler studies reveal moderately (45-60) elevated right-sided pressures. RVSP 58 mmHg MITRAL VALVE: Normal mobility and thickness. No evidence of mitral valve stenosis. Mild mitral annular calcification. Trivial mitral regurgitation. AORTIC VALVE: Normal trileaflet appearance. No visible sclerosis. Normal leaflet mobility. No evidence of aortic valve stenosis. Mild aortic regurgitation. AORTIC ROOT: Normal diameter and appearance. PULMONIC VALVE: Not well visualized. No stenosis. No regurgitation. PERICARDIUM: No evidence of pericardial effusion. IVC: IVC is dilated (2.7 cm), does not fully collapse. CONCLUSION: 1. Global left ventricular systolic function is normal; visually estimated ejection fraction is 55% 2. Normal right ventricular size and systolic function 3. Mild left atrial 4. Grade 2, moderate diastolic dysfunction 5. Mild tricuspid regurgitation 6. Moderately elevated right ventricular systolic pressure; RVSP 58 mmHg 7. Mild aortic valve regurgitation Adult Echocardiography Procedure Report Left Ventricle LVEDD (3.7 - 5.6 cm): 4.79 cm LVESD (2.2 - 4.0 cm): 3.46 cm LVIVS thickness (0.6 - 1.2 cm): 1.18 cm LVPW thickness (0.5 - 1.0 cm): 1.31 cm e': 0.09 m/s E - e': 6.75 LVOT Max Gradient: 2.65 mm[Hg] LVOT Area (cm2): 0.81 m/s Peak Velocity (LVOT): 0.81 m/s Mean Velocity (LVOT): 0.54 m/s LVOT Diameter 2.42 cm Left Ventricular Ejection Fraction: 50.90 % Left Atrium LA Volume Index (2D A2C): 40.17 ml/m2 Left Atrium Systolic Dimension: 4.38 cm Mitral Valve MV E to A Ratio: 1.06 Mitral Valve A-Wave Peak Velocity: 0.57 m/s Mitral Valve E-Wave Peak Velocity: 0.61 m/s Right Ventricle Aorta AO Root Diam: 4.09 cm Aortic Valve AoV Area (Peak Andres): 4.24 cm2, 4.24 cm2 AoV Area (VTI): 4.19 cm2, 4.19 cm2 Peak Velocity(Antegrade Flow): 0.88 m/s Peak Gradient(Antegrade Flow): 3.10 mm[Hg] Mean Velocity(Antegrade Flow): 0.59 m/s Mean Gradient(Antegrade Flow): 1.61 mm[Hg] Velocity Time Integral: 20.38 cm Tricuspid Valve Peak Velocity (Regurgitant Flow): 3.27 m/s Pulmonic Valve Peak Gradient: 2.02 mm[Hg], 1.45 mm[Hg] Right Atrium Right Atrium Systolic Pressure: 45.03 ml, 45.03 ml Dictated by: Beryl Hidalgo M.D. on 02/10/2025 at 16:50 Approved by: Beryl Hidalgo M.D. on 02/10/2025 at 16:53
[2025-02-10] MEDS: CLOPIDOGREL BISULFATE 75 MG TABLET PO (21:20)
[2025-02-10] MEDS: ENOXAPARIN SODIUM 40 MG/0.4 ML SYRINGE SUBQ (21:20)
[2025-02-10] MEDS: ATORVASTATIN CALCIUM 40 MG TABLET 80 MG PO (21:20)
[2025-02-11] VITALS (9 sets, daily range): BP systolic 169–183; BP diastolic 73–84; PULSE 67–82; TEMP 36.4–36.6; O2SAT 95–96
[2025-02-11] MEDS: LEVOTHYROXINE SODIUM 100 MCG TABLET 150 MCG PO (05:50)
[2025-02-11 05:52] LABS: Anion Gap 13.9; Blood Urea Nitrogen 22.0 mg/dL (7.0-18.0); Calcium 8.6 mg/dL (8.5-10.1); Carbon Dioxide 25.3 mmol/L (21.0-32.0); Chloride 109 mmol/L (98-107); Estimated GFR (African America >60 (>=60 mL/min/1.73m^2); Estimated GFR (Non-African Ame 50 (>=60 mL/min/1.73m^2); Glucose 142 mg/dL (74-106); Potassium 4.2 mmol/L (3.5-5.1); Sodium 144 mmol/L (136-145)
[2025-02-11] MEDS: AMLODIPINE BESYLATE 5 MG TABLET 2.5 MG PO ×2 (08:38→12:00)
[2025-02-11] MEDS: ASPIRIN 81 MG TAB.CHEW PO (08:39)
[2025-02-11] MEDS: CLOPIDOGREL BISULFATE 75 MG TABLET PO (08:39)
--- NOTE | 2025-02-11 10:00 | CM.NOTE ---
Rounds made with Dr. Mcknight, discussed with pt MRI and MRA findings. Teleneuro will evaluate findings for further recommendations.
--- NOTE | 2025-02-11 11:16 | PM.DS1 ---
DS: Providers Provider Date of admission: 02/08/25 11:15 Primary care physician: SHIN JOHNSON Consults: 02/07/25 15:35 Consult to Telestroke Routine Reason for consultation: TIA sx 02/07/25 18:20 Occupational Therapy Eval and Treat Routine Reason for consultation: TIA Physical Therapy Eval and Treat Routine Reason for consultation: TIA 02/11/25 Consult to TeleNeurology Routine Reason for consultation: CVA- follow up with MRI results DS: Diagnosis Discharge Diagnosis (1) JOSE MIGUEL (acute kidney injury): (2) Hypertension: (3) Acute CVA (cerebrovascular accident): (4) Bilateral carotid artery stenosis: Assessment and plan: As listed above and others that are not listed (5) CKD (chronic kidney disease): DS: Summary Hospital Course Hospital Course: Mr. Arroyo is a 69-year-old gentleman who came in with transient slurred speech and facial weakness. He was found to have the following: Acute left parietal CVA NIH now is 0. CTA of the head and neck could not be completed due to her kidney failure. I discussed this case with [place] neurology group. Agreement with the plan as outlined below Patient was started on aspirin daily and Lipitor 80 mg daily. Lipid profile was reviewed MRI is positive for left parietal stroke. Echocardiogram showed normal ejection fraction. Possible diastolic dysfunction Bilateral carotid stenosis. 75% on the right side. Near complete occlusion on the left side. Neurology team at [facility] recommended the addition of Plavix as well as aspirin. Neurology team at [facility] recommended the patient to be transferred there for vascular intervention Hypertension, poor control. Patient was on losartan 100 mg prior to admission daily. I had to stop this due to acute on chronic kidney failure. Instead I would start him on amlodipine 5 mg daily to be titrated in the outpatient setting to keep systolic between 135 and 145. Renal failure. Acute, suspect chronic element, chronic stage III. No prior kidney function available in the system. Patient is not aware that he has kidney failure. His kidney failure improved overnight. UA is bland. No RBC or protein to suggest nephritic or nephrotic syndrome. Requested ultrasound which came back negative for obstructive uropathy but positive for cyst. Acute kidney function has been corrected with IV fluid infusion and discontinuation of losartan. Creatinine is down to 1.3 and GFR is up to 50 which I suspect likely chronic DVT prophylaxis Lovenox subcu. Patient has multiple few medical issues as listed above and others that are not listed. All appear to be stable. I do not have any clear or strong clinical justification to extend inpatient hospitalization. Patient however will require close and frequent monitoring as well as additional work-up, investigation and therapeutic intervention that could take place from this point on post discharge. That is to prevent relapse, decompensation, rehospitalization and other medical implications. I instructed patient to ask her primary care doctor to obtain [facility] record entirely to address abnormalities seen on labs and imaging that I have and have not addressed during this hospitalization, follow-up on pending blood work, imaging and pathology is if available and to follow-up on needed medical care in the outpatient setting. Time Spent with Patient Time attestation: Total time spent providing and/or coordinating discharge services: Exam Narrative Exam Narrative: [pt is awake and alert. oriented to place, time and person HEENT: [place] conjunctiva and NL buccal mucosa Neck: Supple, no tenderness Endocrine: No Thyromegaly. Vascular: No JVD or carotid bruit. Lymphatic: No cervical lymphadenopathy. Chest: CTA no DTP. Heart RRR, no extra sound or murmur. Abd: Soft, no tenderness, no rebound and no rigidity. Increase abd girth therefore clinically I could not exclude the possibility of intra abd mass or organomegaly. LE: No cyanosis or clubbing, no varices or edema. Neuro: A A O. Nl speech, comprehension and attention. Nl and symetrical motor and tone examination through out. []] Constitutional Vital Signs, click to edit/add: Last Vital Signs Temp 97.6 F 02/11/25 08:42 Pulse 67 02/11/25 09:48 Resp 16 02/11/25 08:42 BP 183/73 H 02/11/25 08:42 Pulse Ox 95 02/11/25 08:42 O2 Del Method Room Air 02/11/25 08:42 DS: Data Data Completed and Pending Labs on day of discharge: Labs from last 24 hours 02/11/25 02/10/25 05:18 05:54 Sodium 144 Potassium 4.2 Chloride 109 H Carbon Dioxide 25.3 Anion Gap 13.9 BUN 22.0 H Creatinine 1.40 H Est GFR ( Amer) >60 Est GFR (Non-Af Amer) 50 L BUN/Creatinine Ratio 15.7 Glucose 142 H Estimat Average Glucose 123 Hemoglobin A1c 5.9 Calcium 8.6 Discharge Plan Discharge Disposition: [facility] Assessment: I may not have addressed or treated all of your medical illnesses or the abnormal blood work or imaging studies during this hospitalization. Please ask your primary care provider to obtain [facility] records entirely to follow up on all of the abnormal physical, laboratory, and imaging findings that I have not addressed. Please ask your primary care doctor to monitor your blood pressure and adjust the blood pressure medications accordingly. Please ask your primary care doctor to monitor your kidney function. Please return back to the emergency room or seek medical attention if your symptoms worsen or return. Discharging you from [facility] does not mean that your medical care ends here and now. You may still need additional monitoring, work up, investigation, and treatment plan to be handled from this point on by out patient providers including your primary care provider and specialists. For any medication question, please contact your retail pharmacist or your primary care provider. Thank you.
--- NOTE | 2025-02-11 11:23 | P.EN_ITS ---
Event Note Event Note: I had discussed his case with [facility] neurology team. Dr Royal recommended patient to be transferred there for vascular invention specifically the left carotid stenosis Patient will be transferred there. Patient is already on dual antiplatelet therapy as well as blood pressure medication and statin.
--- NOTE | 2025-02-11 11:40 | CM.NOTE ---
Called [facility] bed coordinator for transfer of pt, updated with diagnosis and vitals.
--- NOTE | 2025-02-11 13:58 | CM.NOTE ---
Pt and requesting assistance with downloading VAL to telephone for medical information. Case Management assisted pt and with downloading VAL for [place].
== END 2025-02-11 15:45 | disposition short-term general hospital (02) | DRG 65 ==
LOC: ER 17:23 → MS 17:41
PROVIDERS: Nurse Practitioner; Admitting Provider Internal Medicine; Emergency Provider Emergency Medicine; PCP Nurse Practitioner Family; Visit Provider Internal Medicine
DX: I63.9 Cerebral infarction, unspecified (principal); N17.9 Acute kidney failure, unspecified; I12.9 Hypertensive chronic kidney disease with stage 1 through stage 4 chronic kidney disease, or unspecified chronic kidney disease; N18.30 Chronic kidney disease, stage 3 unspecified; E03.9 Hypothyroidism, unspecified; Z79.890 Hormone replacement therapy; Z87.891 Personal history of nicotine dependence; N28.1 Cyst of kidney, acquired; Z79.82 Long term (current) use of aspirin; I65.23 Occlusion and stenosis of bilateral carotid arteries; R29.700 NIHSS score 0
CPT/HCPCS: 36415; 70450; 70544; 70547; 70551; 76775; 80048; 80053; 80061; 80307; 81001; 82800; 83036; 83735; 84100; 84484; 85025; 93005; 93306; 93880; 97161; 97165; 99285; J1650

== ENCOUNTER 2025-05-05 12:15 | Outpatient (OUT) | payer MEDICARE, OTHER, SELFPAY ==
--- OUTSIDE RECORDS SUMMARY | 2024-02-12 04:00 | XMS_ITS ---
Author Organization [facility] Address [address] [place] [address] Care Team Providers Care [employer] Name Role Phone Neno Beaulieu Unavailable [phone] EMERGENCY ROOM, ER Unavailable Unavailable REASON FOR VISIT Left extensor tendon repair 04/21/23 Encounters Encounter Location Date Provider Diagnosis [facility] [address] [place] [place] [address] [place] [address] 02/12/2024 Neno Beaulieu Plan Of Treatment No Information Progress Notes * STU GARCIADOB: [birth year] (69 yo M)Acc No.[id number]:02/12/2024 Patient: STU PATEL Provider: Charisma Beaulieu MD :1955 A ge:68 Y S ex:Male Date:02/12/2024 Address:[address] [place], [place] [id number] Subjective: * Chief Complaints: * 1 . Left extensor tendon repair 04/21/23. * Medical History: Objective: * Vitals: Assessment: Plan: * Treatment: Forms: * Images: * Electronic signature of Ricci Beaulieu MD on 05/05/2025 at 12:17 PM EDT Sign off status: Pending * Provider: Charisma Beaulieu MD Date: 0 02/12/2024 Generated for Russeli ng/Sharong/eTransmitting on: 1 12:17 PM EDT
--- OUTSIDE RECORDS SUMMARY | 2025-05-05 12:18 | XMS_ITS | Encounter Summary ---
Author Organization [facility] Address [facility] [id number] [address] [place] [address] Care Team Providers Care Student Success Coach Name Role Phone Phyllis Ragsdale Primary Care Provid er Reason for Visit * Reason Comments Med Refill Encounter Details Date Type Department Care Team (Late st Contact Info) Description 01/14/2023 Refill [facility] [address] [place] [address] 1 [place] [phone] Eze Cooley MD [address] [place] [address], [address] [place], [place] [id number] Social History Tobacco Use Types Packs/Day Years Used Date Smoking Tobacco: Former Smokeless Tobacco: Never Alcohol Use Standard Drinks/Week Comments No 0 (1 standard drink = 0.6 oz pur e alcohol) PHQ-2 Answer Date Recorded Total Score 0 11/01/2022 Childcare Answer Date Recorded Childcare Unknown 01/09/2019 Employment Answer Date Recorded Employment Unknown 01/09/2019 Hunger Screening Answer Date Recorded Within the past 12 months we worried whether our food would run out before we got money to buy more. Never True 11/01/2022 Within the past 12 months th e food we bought just didn't last and we didn't have money to get more. Never True 11/01/2022 Purpose - Life Answer Date Recorded Purpose and direction in life Unknown Sex and Gender Information Value Date Recorded Sex Assigned at Not on file Legal Sex Male 12:02 PM EDT Gender Identity Not on file Sexual Orientation Not on file documented as of this encounter Miscellaneous Notes * Telephone Encounter - Elizabeth Cook CMA - 01/14/2023 7:48 AM EDT Patient has a years worth at another pharmacy documented in this encounter Plan of Treatment Not on file documented as of this encounter Visit Diagnoses Not on filedocumented in this encounter Additional Health Concerns Assessment Noted Time PHQ-9 Depression Total Score: 0 11/02/19 23 8:00 AM EDT documented as of this encounter Care Teams Student Success Coach Relationship Specialty Start Date End Date Phyllis Ragsdale APRN-DARWIN [address] [place] [address] PCP - General Nurse Practitioner 02/10/25 documented as of this encounter
--- OUTSIDE RECORDS SUMMARY | 2025-05-05 12:18 | XMS_ITS | Encounter Summary ---
Author Organization [facility] Address [facility] [id number] [address] [place] [address] Care Team Providers Care Director Of Rehabilitation Name Role Phone Phyllis Ragsdale Primary Care Provid er Encounter Details Date Type Department Care Team (Late st Contact Info) Description 11/09/2022 Orders Only [facility] [address] [facility] [address] [place] [address] Inga Cabral RMA Elevated blood sugar Social History Tobacco Use Types Packs/Day Years [...] on file Sexual Orientation Not on file COVID-19 Exposure Response Date Recorded In the last month, have you been in contact with someone who was confirmed or suspected to have Coronavirus / COVID-19? No / Unsure 11/01/2022 8:16 AM EDT documented as of this encounter Plan of Treatment Not on file documented as of this encounter Procedures Procedure Name Priority Date/Time Associated Diagnosis Comments HEMOGLOBIN A1C Routine 11/08/2022 Elevated blood sugar documented in this encounter Results * (ABNORMAL) Hemoglobin A1c (11/08/2022) External Hemoglobin A1C 6.1(A) 4.2 - 5.6 % [facility] Blood 11/08/2022 us Eze Cooley MD LAB BLOOD ORDERABLES Final Re sult [facility] documented in this encounter Visit Diagnoses Diagnosis Elevated blood sugar Other abnormal glucose documented in this encounter Additional Health Concerns Assessment Noted Time PHQ-9 Depression Total Score: 0 11/02/19 8:00 AM EDT documented as of this encounter Care Teams Director Of Rehabilitation Relationship Specialty Start Date End Date Phyllis Ragsdale APRN-DARWIN [address] [place] [address] PCP - General Nurse Practitioner 02/10/25 documented as of this encounter
--- OUTSIDE RECORDS SUMMARY | 2025-05-05 12:18 | XMS_ITS | Encounter Summary ---
Author Organization [facility] Address [facility] [id number] [address] [place] [address] Care Team Providers Care Exchange Mechanic Name Role Phone Phyllis Ragsdale Primary Care Provid er Reason for Visit * Reason Comments Med Refill Encounter Details Date Type Department Care Team (Late st Contact Info) Description 09/18/2023 Refill [facility] [address] [place] [address] 1 [place] [phone] Eze Cooley MD [address] [place] [address], [address] [place], [place] [phone] Social History Tobacco Use Types Packs/Day Years [...] Telephone Encounter - Elizabeth Cook CMA - 09/18/2023 10:40 AM EST Too soon to refill documented in this encounter Plan of Treatment Not on file documented as of this encounter Visit Diagnoses Not on filedocumented in this encounter Additional Health Concerns Assessment Noted Time PHQ-9 Depression Total Score: 0 11/02/19 23 8:00 AM EDT documented as of this encounter Care Teams Exchange Mechanic Relationship Specialty Start Date End Date Phyllis Ragsdale APRN-NP [address] [place] [address] PCP - General Nurse Practitioner 02/10/25 documented as of this encounter
--- OUTSIDE RECORDS SUMMARY | 2025-05-05 12:18 | XMS_ITS | Encounter Summary ---
Author Organization [facility] Address [facility] [id number] [address] [place] [address] Care Team Providers Care Auto Care Center Manager Name Role Phone Phyllis Ragsdale Primary Care Provid er Encounter Details Date Type Department Care Team (Late st Contact Info) Description 10/27/2022 Telephone [facility] [address] [phone] Elizabeth Cook CMA Social History Tobacco Use Types Packs/Day Years Used Date Smoking Tobacco: Former Smokeless Tobacco: Never Alcohol Use Standard Drinks/Week Comments No 0 (1 standard drink = 0.6 oz pur e alcohol) PHQ-2 Answer Date Recorded Total Score 0 10/28/2021 Childcare Answer Date Recorded Childcare Unknown 01/09/2019 Employment Answer Date Recorded Employment Unknown 01/09/2019 Purpose - Life Answer Date Recorded Purpose and direction in life Unknown Sex and Gender Information Value Date Recorded Sex Assigned at Not on file Legal Sex Male 12:02 PM EDT Gender Identity Not on file Sexual Orientation Not on file documented as of this encounter Plan of Treatment Not on file documented as of this encounter Visit Diagnoses Not on filedocumented in this encounter Additional Health Concerns Assessment Noted Time PHQ-9 Depression Total Score: 0 10/29/19 22 8:00 AM EDT documented as of this encounter Care Teams Auto Care Center Manager Relationship Specialty Start Date End Date Phyllis Ragsdale APRN-NP [address] [place] [address] PCP - General Nurse Practitioner 02/10/25 documented as of this encounter
--- OUTSIDE RECORDS SUMMARY | 2025-05-05 12:18 | XMS_ITS | Encounter Summary ---
Author Organization [facility] [facility] Address [facility] [id number] [address] [place] [address] Care Team Providers Care [employer] [place] [employer] Group Leader Name Role Phone Phyllis Ragsdale Primary Care Provid er Reason for Visit * Reason Comments Med Refill Encounter Details Date Type Department Care Team (Late st Contact Info) Description 12/13/2023 Refill [facility] [address] [place] [address] 1 [place] [phone] Eze Cooley MD [address] [place] [address], [address] [place], [place] [id number] Social History Tobacco Use Types Packs/Day Years [...] documented as of this encounter Care Teams [employer] Group Leader Relationship Specialty Start Date End Date Phyllis Ragsdale APRN-DARWIN [address] [place] [address] PCP - General Nurse Practitioner 02/10/25 documented as of this encounter
--- OUTSIDE RECORDS SUMMARY | 2025-05-05 12:18 | XMS_ITS | Encounter Summary ---
Author Organization [facility] tem Address [facility] [id number] [address] [place] [address] Care Team Providers Care Flavoring Oil Filterer Name Role Phone Phyllis Ragsdale Primary Care Provid er Encounter Details Date Type Department Care Team (Late st Contact Info) Description 04/21/2023 Orders Only [facility] [address] [facility] [address] [place] [phone] External, Scanning Provider Social History Tobacco Use Types Packs/Day Years [...] documented as of this encounter Care Teams Flavoring Oil Filterer Relationship Specialty Start Date End Date Phyllis Ragsdale APRN-DARWIN [address] [place] [address] PCP - General Nurse Practitioner 02/10/25 documented as of this encounter
--- OUTSIDE RECORDS SUMMARY | 2025-05-05 12:18 | XMS_ITS | Encounter Summary ---
Author [facility] [facility] Address [facility] [id number] [address] [place] [address] Care Team Providers Care Greenhouse Florist Name Role Phone Phyllis Ragsdale Primary Care Provid er Encounter Details Date Type Department Care Team (Late st Contact Info) Description 11/06/2020 Orders Only [facility] [address] [place] [phone] Eze Cooley MD [address] [place] [address], [address] [place], [place] [phone] Screening for colon cancer Social History Tobacco Use Types Packs/Day Years Used Date Smoking Tobacco: Former Smokeless Tobacco: Never Alcohol Use Standard Drinks/Week Comments No 0 (1 standard drink = 0.6 oz pur e alcohol) PHQ-2 Answer Date Recorded Total Score 0 10/27/2020 Childcare Answer Date Recorded Childcare Unknown 01/09/2019 [...] have Coronavirus / COVID-19? No / Unsure 10/27/2020 8:16 AM EDT documented as of this encounter Plan of Treatment Not on file documented as of this encounter Procedures Procedure Name Priority Date/Time Associated Diagnosis Comments COLOGUARD NON-[place] Routine 11/02/2020 Screening for colon cancer documented in this encounter Results * Cologuard Non-[facility] (11/02/2020) EXTERNAL COLOGUARD Negative MANUALLY TRANSCRIBED RESULTS 11/02/2020 us Eze Cooley MD LAB ORDERABLES Final Result MANUALLY TRANSCRIBED RESULTS documented in this encounter Visit Diagnoses Diagnosis Screening for colon cancer Special screening for malignant neoplasms, colon documented in this encounter Additional Health Concerns Assessment Noted Time PHQ-9 Depression Total Score: 0 10/28/19 21 8:28 AM EDT documented as of this encounter Care Teams Greenhouse Florist Relationship Specialty Start Date End Date Phyllis Ragsdale APRN-DARWIN [address] [place] [address] PCP - General Nurse Practitioner 02/10/25 documented as of this encounter
--- OUTSIDE RECORDS SUMMARY | 2025-05-05 12:18 | XMS_ITS | Clinical Summary ---
Author Organization [facility] BABADU [facility] tem Address [id number] [address] [place] [address] Care Team Providers Care Academic Intern Name Role Phone Phyllis Ragsdale Primary Care Provid er Allergies No known active allergies Medications losartan (COZAAR) 100 mg tablet Take 1 tablet (100 mg total) by mouth in the morning. 90 tablet 3 3 Active levothyroxine (SYNTHROID, LEVOTHROID) 150 MCG tablet Take 1 tablet (150 mcg total) by mouth in the morning. 90 tablet 3 3 Active aspirin 81 mg chewable tablet Chew 1 tablet (81 mg total) and swallow in the morning. 180 tablet 5 Active atorvastatin (LIPITOR) 40 mg tablet Take 1 tablet (40 mg total) by mouth nightly. 60 tablet 2 5 Active Additional Information Patient taking differently: 20 mgoral Nightly, Reported on 04/01/2025 clopidogreL (PLAVIX) 75 mg tablet Take 1 tablet (75 mg total) by mouth in the morning. 180 tablet 5 Active Active Problems Problem Noted Date Diagnosed Date Stroke 02/14/2025 Stroke (cerebrum) 02/11/2025 Mixed hyperlipidemia 10/27/2020 Hypertension Hypothyroidism Encounters Date Type Department Care Team Description 04/01/2025 1:30 PM EDT Office Visit Oral Neurology, A Department of [facility] [address] [place] [address] Rico Weber MD Cerebrovascular accident (CVA) due to stenosis of right carotid artery ([facility]) (Primary Dx); Mixed hyperlipidemia 03/10/2025 Telephone [facility], A Department of [place] [address] [place] [phone] Margarita Joshi medication question 02/17/2025 [facility], A Department of [place] [address] [place] [phone] Lawanda Suarez RN 02/17/2025 Telephone [facility], A Department of [place] [address] [facility] [place] [phone] Keely Mcclure Medication Questions 02/14/2025 8:30 AM EDT - 02/14/2025 9:30 AM EDT Surgery [facility] - Cardiac Cath [address] [place] [phone] Rico Weber MD Stent carotid with embolic protection right [05080 (CPT )] 02/12/2025 11:00 AM EDT - 02/12/2025 12:00 PM EDT Surgery [facility] - Cardiac Cath [address] [place] [phone] Rico Weber MD Diagnostic cerebral angiogram 02/12/2025 Orders Only [facility] [address] [place] [phone] External, Scanning Provider Pain (Primary Dx) 02/11/2025 5:04 PM EDT - 02/15/2025 2:27 PM EDT Hospital Encounter [facility] - GEN 8 ICU [address] [place] [phone] Chip Royal MD Cerebrovascular accident (CVA), unspecified mechanism ([facility]) (Primary Dx); Acute ischemic left internal carotid artery (ICA) stroke ([facility]) Discharge Disposition: Home 02/11/2025 Travel 02/11/2025 Orders Only [facility] [address] [place] [address] Transcribe, Orders Support User Pain (Primary Dx) 02/10/2025 6:35 PM EDT Ancillary Procedure [facility] [address] [place] [address] Pain 02/10/2025 12:40 PM EDT Ancillary Procedure [facility] [place] [address] Pain 02/10/2025 11:35 AM EDT Ancillary Procedure [facility] [address] [place] [phone] Pain 02/10/2025 11:10 AM EDT Ancillary Procedure [facility] [address] [place] [phone] Pain 02/10/2025 11:05 AM EDT Ancillary Procedure [facility] [address] [place] [phone] Pain 02/07/2025 6:55 PM EDT Ancillary Procedure [facility] [address] [place] [phone] Pain 02/07/2025 5:07 PM EDT - 02/11/2025 11:23 AM EDT Emergency [facility] Stroke [address] [place] [address] 02/07/2025 3:40 PM EDT Ancillary Procedure [facility] [place] [address] Pain 02/07/2025 Orders Only [facility] [place] [address] Transcribe, Orders Support User Pain (Primary Dx) from Last 3 Months Immunizations Immunization Administration Dates Next Due Tdap 07/26/2019 Family History Medical History Relation Name Comments Heart disease Father Relation Name Status Comments Father Social History Tobacco Use Types Packs/Day Years Used Date Smoking Tobacco: Former Smokeless Tobacco: Never Tobacco Cessation:Counseling Given: No Alcohol Use Standard Drinks/Week Comments No 0 (1 standard drink = 0.6 oz pur e alcohol) [facility] Utilities Answer Date Recorded In the past 12 months has th e electric, gas, oil, or water company threatened to shut off services in your home? No 02/11/2025 AUDIT-C Answer Date Recorded Q1: How often do you have a drink containing alcohol? Never 02/11/2025 Q2: How many drinks containi ng alcohol do you have on a typical day when you are drinking? Patient does not drink Q3: How often do you have si x or more drinks on one occasion? Never 02/11/2025 PHQ-2 Answer Date Recorded Total Score 0 04/01/2025 PRAPARE - Transportation Answer Date Re corded In the past 12 months, has l ack of transportation kept you from medical appointments or from getting medications? No 01/28 In the past 12 months, has l ack of transportation kept you from meetings, work, or from getting things needed for daily living? No 02/11/2025 Housing Instability Answer Date Recorde d Are you worried or concerned that in the next two months you may not have stable housing that you own, rent or stay in as a part of a household? No 02/11/2025 Childcare Answer Date Recorded Childcare Unknown 01/09/2019 Employment Answer Date Recorded Employment Unknown 01/09/2019 Hunger Screening Answer Date Recorded Within the past 12 months we worried whether our food would run out before we got money to buy more. Never True 02/11/2025 Within the past 12 months th e food we bought just didn't last and we didn't have money to get more. Never True 02/11/2025 Purpose - Life Answer Date Recorded Purpose and direction in life Unknown Sex and Gender Information Value Date Recorded Sex Assigned at Not on file Legal Sex Male 12:02 PM EDT Gender Identity Not on file Sexual Orientation Not on file Last Filed Vital Signs Vital Sign Reading Time Taken Comments Blood Pressure 158/77 04/01/2025 1:12 PM EDT Pulse 77 04/01/2025 1:12 PM EDT Temperature 36.6 C (97.9 F) 02/15/2025 8:00 AM EDT Respiratory Rate 16 02/15/2025 11:47 AM EDT Oxygen Saturation 93% 02/15/2025 9:00 AM EDT Inhaled Oxygen Concentration - - Weight 96.6 kg (213 lb) 04/01/2025 1:12 PM EDT Height 188 cm (6' 2 ) 02/11/2025 5:16 PM EDT Body Mass Index 27.35 02/11/2025 5:16 PM EDT Plan of Treatment Health Maintenance Due Date Last Done Comments Adult BMI Follow Up Plan 1972 Zoster (Shingles) Vaccine (1 of 2) 2004 Colonoscopy 05/01/2020 05/01/2017 Fall Risk Screening 11/02/2023 11/01/2022 Colon Cancer Screening 3 Year Cologuard 11/03/2023 0 11/02/2020 Influenza Vaccine 03/31/2025 Adult BMI Screening 04/01/2026 04/01/2025 Depression Screening 04/01/2026 04/01/2025 Tobacco Screening 04/01/2026 04/01/2025 DTaP,Tdap and Td Vaccines (2 - Td or Tdap) 07/26/2029 07/26/2019 Abdominal Aortic Aneurysm (AAA) Screen Completed Medical Devices Implanted Type Area Video Game Repair Technician Device Identifier Shelf Expiration Date Model / Serial / Lot Stent Crtd Xact 6/8mm 30mm 136cm Tpr Slf Xpd Cls Cell Stl Act Use [id number] - [id number] Implanted:Qty: 1 on 02/14/2025 by Rico Weber MD at [facility] [employer] [id number] / / Procedures Procedure Name Priority Date/Time Associated Diagnosis Comments CBC WITH AUTO DIFFERENTIAL Routine 02/15/2025 2:34 AM EDT COMPREHENSIVE METABOLIC PANEL Routine 02/15/2025 2:34 AM EDT BEDSIDE GLUCOSE Routine 02/14/2025 9:31 AM EDT NEURO INVASIVE Routine 02/14/2025 9:04 AM EDT NEURO INVASIVE Routine 02/14/2025 9:04 AM EDT CBC WITH AUTO DIFFERENTIAL Routine 02/14/2025 6:27 AM EDT COMPREHENSIVE METABOLIC PANEL Routine 02/14/2025 6:27 AM EDT CBC WITH AUTO DIFFERENTIAL Routine 02/13/2025 12:56 PM EDT EXTRA TUBES LAVENDER TOP Routine 02/13/2025 6:43 AM EDT CBC WITH AUTO DIFFERENTIAL Routine 02/13/2025 6:43 AM EDT EXTRA TUBES Routine 02/13/2025 6:43 AM EDT COMPREHENSIVE METABOLIC PANEL Routine 02/13/2025 6:42 AM EDT NEURO INVASIVE Routine 02/12/2025 2:17 PM EDT NEURO INVASIVE Routine 02/12/2025 2:17 PM EDT BEDSIDE GLUCOSE Routine 02/12/2025 11:58 AM EDT VASC CAROTID DUPLEX BILATERAL Routine 02/12/2025 9:39 AM EDT EXTRA TUBES LAVENDER TOP Routine 02/12/2025 7:53 AM EDT EXTRA TUBES Routine 02/12/2025 7:53 AM EDT LIPID PROFILE Routine 02/12/2025 7:31 AM EDT COMPREHENSIVE METABOLIC PANEL Routine 02/12/2025 7:31 AM EDT BEDSIDE GLUCOSE Routine 02/12/2025 5:53 AM EDT THYROID PROFILE INCLUDES TSH FT4 Routine 02/11/2025 7:06 PM EDT MAGNESIUM Routine 02/11/2025 7:06 PM EDT HEMOGLOBIN A1C Routine 02/11/2025 7:06 PM EDT COMPREHENSIVE METABOLIC PANEL Routine 02/11/2025 7:06 PM EDT VASC CAROTID DUPLEX BILATERAL Routine 02/10/2025 6:35 PM EDT Pain NON [facility] E[facility] Routine 02/10/2025 12 :40 PM EDT Pain MR MRA NECK WO CONT Routine 02/10/2025 1 1:35 AM EDT Pain MR BRAIN WO CONT Routine 02/10/2025 11:1 0 AM EDT Pain MR MRA HEAD WO CONT Routine 02/10/2025 1 1:05 AM EDT Pain US RETROPERITONEAL COMPLETE Routine 02/07/2025 6:[address] BRAIN WO CONT STROKE ALERT STAT Reading 02/07/2025 3:40 PM EDT Pain [facility]UARD NON[facility] Routine 11/02/2020 Screening for colon cancer COLONOSCOPY 05/01/2017 9:26 AM EDT from Last 3 Months or Most Recently Relevant to Health Maintenance Results * (ABNORMAL) CBC auto differential (02/15/2025 2:34 AM EDT) Only the most recent of4 resultswithin the time period is included. WBC 6.1 4 - 11 x10E9/L 02/15/2025 3:29 AM EDT [facility] RBC Count 4.24 4.1 - 5.7 X10E12/L 02/15/2025 3:29 AM EDT [facility] Hemoglobin 12.2(L) 13 - 17 g/dL 02/15/2025 3:29 AM EDT [facility] Hematocrit 35.6(L) 39 - 50 % 02/15/2025 3:29 AM EDT [facility] MCV 84 80 - 100 fL 02/15/2025 3:29 AM EDT [facility] MCH 28.7 27 - 34 pg 02/15/2025 3:29 AM EDT [facility] MCHC 34.2 32 - 36 g/dL 02/15/2025 3:29 AM EDT [facility] RDW 13.8 11.5 - 15 % 02/15/2025 3:29 AM EDT [facility] Platelet Count 173 150 - 450 X10E9/L 02/15/2025 3:29 AM EDT [facility] MPV 7.7 7 - 12 fL 02/15/2025 3:29 AM EDT [facility] Neutrophils % 67.8 % 02/15/2025 3:29 AM EDT [facility] Lymphocytes % 20.5 % 02/15/2025 3:29 AM EDT [facility] Monocytes % 7.8 % 02/15/2025 3:29 AM EDT [facility] Eosinophils % 1.9 % 02/15/2025 3:29 AM EDT [facility] Basophils % 2.0 % 02/15/2025 3:29 AM EDT [facility] Neutrophils Absolute (A) 4.1 1.5 - 6.6 10*3/uL 02/15/2025 3:29 AM EDT [facility] Lymphocytes Absolute 1.2 1.0 - 3.5 10*3/uL 02/15/2025 3:29 AM EDT [facility] Monocytes Absolute 0.5 0.0 - 0.9 10*3/uL 02/15/2025 3:29 AM EDT [facility] Eosinophils Absolute 0.1 0.0 - 0.4 10*3/uL 02/15/2025 3:29 AM EDT [facility] Basophils Absolute 0.1 0.0 - 0.2 10*3/uL 02/15/2025 3:29 AM EDT [facility] Differential Type AUTOMATED DIFFERENTIAL 02/15/2025 3:29 AM EDT [facility] Blood Venous blood / Unknown Venipuncture / Unknown 02/15/2025 2:34 AM EDT 02/15/2025 2:34 AM EDT us Freddy Díaz MD LAB BLOOD ORDERABLES Final R esult [facility] [address] [place] [address], [place] [phone] * (ABNORMAL) Comprehensive metabolic panel (02/15/2025 2:34 AM EDT) Only the most recent of5 resultswithin the time period is included. SODIUM 140 134 - 146 mmol/L 02/15/2025 3:49 AM EDT [facility] POTASSIUM 4.0 3.5 - 5.0 mmol/L 02/15/2025 3:49 AM EDT [facility] CHLORIDE 106 98 - 109 mmol/L 02/15/2025 3:49 AM EDT [facility] CARBON DIOXIDE 26 22 - 32 mmol/L 02/15/2025 3:49 AM EDT [facility] ANION GAP 8 5 - 15 mmol/L 02/15/2025 3:49 AM EDT [facility] BLOOD UREA NITROGEN 28(H) 5 - 27 mg/dL 02/15/2025 3:49 AM EDT [facility] CREATININE 1.28 0.60 - 1.30 mg/dL 02/15/2025 3:49 AM EDT [facility] Comment:METHOD TRACEABLE TO IDMS STANDARD GLUCOSE 114(H) 65 - 99 mg/dL 02/15/2025 3:49 AM EDT [facility] CALCIUM 8.6 8.5 - 10.5 mg/dL 02/15/2025 3:49 AM EDT [facility] TOTAL PROTEIN 5.7(L) 6.0 - 8.0 g/dL 02/15/2025 3:49 AM EDT [facility] ALBUMIN 3.7 3.2 - 5.3 g/dL 02/15/2025 3:49 AM EDT [facility] ALKALINE PHOSPHATASE 55 39 - 130 U/L 02/15/2025 3:49 AM EDT [facility] AST 18 <=41 U/L 02/15/2025 3:49 AM EDT [facility] ALT 30 <=40 U/L 02/15/2025 3:49 AM EDT [facility] BILIRUBIN,TOTAL 0.4 0.3 - 1.2 mg/dL 02/15/2025 3:49 AM EDT [facility] EGFR Non-Race Dependent 60 >=60 ml/min/1.7 3sq.m 02/15/2025 3:49 AM EDT [facility] Comment: Reported eGFR is based on the CKD-EPI 2020 equation that does not use a race coefficient. Blood Venous blood / Unknown Venipuncture / Unknown 02/15/2025 2:34 AM EDT 02/15/2025 2:34 AM EDT us Noman Elise MD LAB BLOOD ORDERABLES Final Resul t [facility] [address] [place] [address], [place] [phone] * (ABNORMAL) Bedside Glucose *Place/Obtain serum glucose if >500 per glucometer. (02/14/2025 9:31 AM EDT) Only the most recent of3 resultswithin the time period is included. Bedside Glucose (POC) 105(H) 65 - 99 mg/dL 02/14/2025 9:36 AM EDT [facility] arterial/capilla ry 02/14/2025 9:31 AM EDT 02/14/2025 9:36 AM EDT us Chip Royal MD POINT OF CARE TEST ORDERABL ES Final Result [facility] [address] [place] [address], [place] * STENT CAROTID W/EMBOLIC PRO RIGHT, NEURO INVASIVE (02/14/2025 9:04 AM EDT) Anatomical Region Laterality Modality X-Ray Angiograph y Narrative 02/14/2025 9:15 AM EDT Jayy Arroyo is a 69 y.o. male with left hemispheric stroke in context of ipsilateral left ICA occlusion and contralateral proximal right ICA origin stenosis. Left hemispheric perfusion is dependent on filling across the communicating arteries. To augment intracranial flow, and mitigate future stroke risk, proximal right ICA stenting was recommended. The risks, alternates and benefits of the procedure were discussed with the patient. Up to 3-5 percent risk of complication including but not limited to failure, arterial injury, stroke, reperfusion intercerebral hemorrhage, contrast nephropathy, groin complication and/or was quoted. Consent was obtained. Procedure: Jayy Arroyo was identified and brought to the neuro IR suite. Patient was placed supine on the angio table. Bilateral groins were shaved, prepped and the patient was draped in the usual sterile manner. Using modified Seldinger technique a 6 Estonian sheath was advanced in the right common femoral artery. Patient was then loaded with Three thousand units of systemic heparin. Through this sheath we now advanced a 5 Estonian Drew 2 catheter over an 035 wire into the left subclavian artery. Selective catheterization and angiography of the right common carotid and right common femoral arteries were performed. Filming was done in AP, lateral and oblique projections using digital format. The angiographic runs from the right common carotid artery confirmed high-grade, focal right ICA origin stenosis. At this stage, an exchange length wire was advanced into the right external carotid artery. The diagnostic catheter and groin sheath were then switched for a 6 Estonian 90 cm neuron max sheath. Through the sheath we advanced a synchro micro wire into the petrous segment of the right ICA. Over this micro wire we advanced Spider Fx 5.0 distal emboli protection device into the distal cervical segment of the right ICA. Device was deployed at this level. We then proceeded to angioplasty the right ICA origin lesion using a compliant 3 x 15 mm balloon. This was followed by deployment of a 8-6 x 40 mm XACT carotid artery stent covering the lesion at the right ICA origin. Post deployment, angioplasty using a non compliant 5 x 15 mm balloon was carried out. This was followed by retrieval of the distal emboli protection device. Angiographic runs now show that the right ICA at its origin is filling well. There is no residual stenosis at this stage. No underlying filling defects are noted. Significantly improved cross filling into the contralateral left hemisphere is now noted. At the end of the procedure the catheter and the sheath were removed. Groin was closed using Mynx device. Findings: Right Common Carotid Artery Angiogram: The right common carotid artery angiogram shows normal opacification of the right common carotid artery up to the level of its bifurcation. The right common carotid artery at its bifurcation fills harbors atherosclerotic changes. Right external carotid artery is filling normally with normal supply head and face. Severe focal narrowing at the right ICA origin with luminal diameter reduction of over 90% based on NASCET criteria is noted. The distal right internal carotid artery fills well through its extra and intracranial segments. The right MCA and distal branches fill well. The right anterior cerebral artery and its branches fill in normal fashion. Minimal cross filling into the left TERESITA and proximal left MCA is noted. Right common carotid artery angiogram following balloon angioplasty and stenting of the proximal right ICA origin now show no residual narrowing at the right ICA origin. The stent is well apposed to the vessel wall. No luminal filling defects are noted. Intracranial circulation remains patent. A significantly improved cross filling into the left hemispheric circulation is also noted. Right Common Femoral Artery Angiogram: The right common femoral artery angiogram shows normal opacification of the right common femoral artery with normal runoff to the distal extremity. Impression: Jayy Arroyo underwent diagnostic cerebral angiography and right internal carotid artery angioplasty and stenting using distal emboli protection device for a symptomatic, high-grade focal proximal right ICA origin stenosis. The procedure was completed successfully without any immediate complications. Radha Herbert MD INV NEURO ORDERABLES Final R esult * [facility] (02/13/2025 6:43 AM EDT) Only the most recent of2 resultswithin the time period is included. Extra Tube Auto Resulted 02/13/2025 8:02 AM EDT [facility] Blood Venous blood / Unknown 02/13/2025 6:43 AM EDT 02/13/2025 7:27 AM EDT Chip Royal MD LAB BLOOD ORDERABLES Final Result [facility] [address] [place] [address], * DIAGNOSTIC CEREBRAL ANGIOGRAM, NEURO INVASIVE (02/12/2025 2:17 PM EDT) Anatomical Region Laterality Modality X-Ray Angiograph y Narrative 02/14/2025 10:07 AM EDT Jayy Arroyo is a 69 y.o. male with left hemispheric stroke in context of proximal left ICA occlusion based on noninvasive imaging. Cerebral angiography was recommended to further study this lesion . The risks, alternates and benefits of the procedure were discussed with the patient. Up to 1 percent risk of complication including but not limited to arterial injury, stroke, intercerebral hemorrhage, contrast nephropathy, groin complication and/or was quoted. Consent was obtained. Procedure: Jayy Arroyo was identified and brought to the neuro IR suite. She was placed supine on the angio table. Bilateral groins were shaved, prepped and the patient was draped in the usual sterile manner. Using modified Seldinger technique a 5 Estonian sheath was advanced in the right common femoral artery. Through this sheath 3 9 advanced a 5 Estonian Derw 2 catheter over an 035 wire into the left subclavian artery. Selective catheterization angiography of the left subclavian, left vertebral, left common carotid, right common carotid, and right common femoral arteries were performed. Filming was done in AP, lateral and oblique projections using digital format. At the end of the procedure the catheter and sheath were removed. Groin was closed using the Mynx device. Findings: Left Subclavian Artery Angiogram: The left subclavian artery angiogram shows normal opacification of the left subclavian artery and its branches. The origin of the left vertebral artery is identified. The left vertebral artery fills well at its origin. Left Vertebral Artery Angiogram: The left vertebral artery angiogram shows normal opacification of the left vertebral artery through its extra and intracranial segments. In its intracranial course the left posterior inferior cerebellar artery is identified. The left posterior inferior cerebellar artery fills well through its course. The basilar artery fills normally. At its apex, bilateral superior cerebellar arteries are identified. The superior cerebellar arteries are filling normally. Both posterior cerebral arteries are identified. The posterior cerebral arteries are filling well through their respective segments. There is robust retrograde filling through the left posterior communicating artery into the intracranial left internal carotid artery with reconstitution of left middle cerebral artery and its branches. No intracranial aneurysms are identified. No AV shunting is noted. No venous outflow anomalies are appreciated. Left Common Carotid Artery Angiogram: The left common carotid artery angiogram shows normal opacification of the left common carotid artery up to the level of its bifurcation. The left internal carotid artery is occluded at its origin. There is no antegrade filling of the left internal carotid artery distal to its origin. There is normal opacification of the left external carotid artery and its branches. There is retrograde collateral filling from the left internal maxillary artery, via its orbital branches, into the ophthalmic artery with subsequent opacification of the intracranial segment of the internal carotid artery distal to the occlusion. Right Common Carotid Artery Angiogram: The right common carotid artery angiogram shows normal opacification of the right common carotid artery up to the level of its bifurcation. There is normal opacification of the right external carotid artery and its branches. The right internal carotid artery at its proximal cervical segment harbors focal narrowing causing 75% stenosis per NASCET criteria. The right internal carotid artery fills well through the rest of the cervical, horizontal and ascending petrous, cavernous and supraclinoid segments. In its supraclinoid course the right ophthalmic artery is identified. The right ophthalmic artery fills well. Supraclinoid segment of the right internal carotid artery bifurcates into well filling right anterior and the middle cerebral arteries. The right anterior cerebral artery A1 segment fills normally. The right TERESITA A2 segment and it is distal branches opacify normally. There is robust filling through the anterior communicating artery into the contralateral TERESITA and its distal branches. No abrupt vessel cutoff noted. The right MCA M1 segment fills well. Right MCA at its bifurcation is filling normally. Ipsilateral right MCA M2 divisions and distal branches opacify normally. No intracranial aneurysms noted. No abrupt vessel cutoffs noted. No AV shunting is noted. No venous outflow anomalies are appreciated. Right Common Femoral Artery Angiogram: The right common femoral artery angiogram shows normal opacification of the right common femoral artery and its branches. Impression: Jayy Arroyo underwent diagnostic cerebral angiography. This is an abnormal study. There is complete occlusion of the right internal carotid artery with no filling distal to its origin. Collateral circulation is observed through the left posterior communicating artery, retrograde ophthalmic artery filling via the internal maxillary branch of the ECA, and cross-filling to the left anterior circulation via the anterior communicating artery. Of note, the right internal carotid artery harbors focal narrowing at its proximal cervical segment causing >75% stenosis per NASCET criteria. Radha Herbert MD INV NEURO ORDERABLES Final R esult * Vas carotid duplex bilateral (02/12/2025 9:39 AM EDT) Only the most recent of2 resultswithin the time period is included. Anatomical Region Laterality Modality Vascular Bilateral Ultrasound 02/12/2025 10:1 7 AM EDT Narrative 02/12/2025 4:30 PM EDT Right: Plaque with significant spectral Doppler/color flow disturbances; ICA Velocity 725/359 cm/sec, ICA/CCA Ratio 8.1. Antegrade vertebral artery flow. Left: Hypoechoic intraluminal ICA content without spectral or color-flow Doppler. Antegrade vertebral artery flow. Conclusions: RIGHT:>70% stenosis of the internal carotid artery. EDV and ratio suggest > 80% stenosis. Antegrade vertebral artery flow.LEFT:Duplex data consistent with occlusion of the internal carotid artery.Antegrade vertebral artery flow. Recommendations: Any questions prior to finalization, please call the reading physician during normal business hours at the phone number beside their name. Procedure Note Mane Cadena MD - 02/12/2025 Right: Plaque with significant spectral Doppler/color flow disturbances;ICA Velocity 725/359 cm/sec, ICA/CCA Ratio 8.1. Antegrade vertebral arteryflow. Left: Hypoechoic intraluminal ICA content without spectral or color-flowDoppler. Antegrade vertebral artery flow. Conclusions: RIGHT:>70% stenosis of the internal carotid artery. EDV andratio suggest > 80% stenosis. Antegrade vertebral arteryflow.LEFT:Duplex data consistent with occlusion of the internal carotidartery.Antegrade vertebral artery flow. Recommendations: Any questions prior to finalization, please call thereading physician during normal business hours at the phone number besidetheir name. Noman Elise MD CV VASCULAR ORDERABLES Final Res ult * (ABNORMAL) Lipid profile (02/12/2025 7:31 AM EDT) CHOLESTEROL 150 150 - 200 mg/dL 02/12/2025 8:27 AM EDT [facility] TRIGLYCERIDE 228(H) 27 - 150 mg/dL 02/12/2025 8:27 AM EDT [facility] HDL CHOLESTEROL 26(L) >39 mg/dL 8:27 AM EDT [facility] Comment: HDL <40 mg/dL - High Risk HDL > or = 40mg/dL- Desirable HDL >60 mg/dL - Negative Risk LDL (CALC) 78 <130 mg/dL 02/12/2025 8:27 AM EDT [facility] Comment: LDL <100 mg/dL - Desirable LDL >160 mg/dL - High Risk CHOLESTEROL:HDL 5.8(H) 1.0 - 5.0 8:27 AM EDT [facility] VERY LOW LIPOPROTEIN 46(H) 0 - 30 mg/dL 02/12/2025 8:27 AM EDT [facility] Blood Venous blood / Unknown Venipuncture / Unknown 02/12/2025 7:31 AM EDT 02/12/2025 7:51 AM EDT Noman Elise MD LAB BLOOD ORDERABLES Final Resul t [facility] [address] [place] [address], * Thyroid profile includes TSH FT4 (02/11/2025 7:06 PM EDT) FREE T4 0.92 0.61 - 1.60 ng/dL 02/11/2025 8:05 PM EDT [facility] TSH 4.66 0.49 - 4.67 uIU/mL 02/11/2025 8:05 PM EDT [facility] Blood Venous blood / Unknown Venipuncture / Unknown 02/11/2025 7:06 PM EDT 02/11/2025 7:06 PM EDT us Noman Elise MD LAB BLOOD ORDERABLES Final Resul t Performing Organization Address City/[facility]/ZIP Co de Phone Number [facility] [address] [place] [address], * Magnesium (02/11/2025 7:06 PM EDT) MAGNESIUM 1.8 1.8 - 2.6 mg/dL 02/11/2025 7:56 PM EDT [facility] Blood Venous blood / Unknown Venipuncture / Unknown 02/11/2025 7:06 PM EDT 02/11/2025 7:06 PM EDT us Noman Elise MD LAB BLOOD ORDERABLES Final Resul t Performing Organization Address [facility] Co de Phone Number [facility] [address] [place] [address], * (ABNORMAL) Hemoglobin A1c (02/11/2025 7:06 PM EDT) HEMOGLOBIN A1C 5.8(H) 4.4 - 5.6 % 02/11/2025 8:08 PM EDT [facility] Comment: ADA Guidelines Result HgbA1c Normal : less than 5.7 % Prediabetes : 5.7 % to 6.4 % Diabetes : > 6.4 % Use with caution in patients with abnormal hemoglobin variants as the half-life of red blood cells and in vivo glycation rates are affected. EST. AVERAGE GLUCOSE 120 mg/dL 02/11/2025 8:08 PM EDT [facility] Blood Venous blood / Unknown Venipuncture / Unknown 02/11/2025 7:06 PM EDT 02/11/2025 7:06 PM EDT us Noman Elise MD LAB BLOOD ORDERABLES Final Resul t Performing Organization Address City/[facility] Co de Phone Number [facility] [address] [place] [address], [place] [phone] * Non [facility] (02/10/2025 12:40 PM EDT) us Scanning Provider External CV ECHO ORDERABLES Fi nal Result Performing Organization Address [facility] Co de Phone Number [facility] * MRA neck without contrast (02/10/2025 11:35 AM EDT) us Scanning Provider External IMG MRI ORDERABLES Fi nal Result * MR brain without contrast (02/10/2025 11:10 AM EDT) us Scanning Provider External IMG MRI ORDERABLES Fi nal Result * MRA head without contrast (02/10/2025 11:05 AM EDT) us Scanning Provider External IMG MRI ORDERABLES Fi nal Result * Ultrasound retroperitoneal complete (02/07/2025 6:55 PM EDT) us Scanning Provider External IMG US ORDERABLES Fin al Result * CT brain without contrast stroke alert (02/07/2025 3:40 PM EDT) us Scanning Provider External IMG CT ORDERABLES Fin al Result * Cologuard Non-[facility] (11/02/2020) EXTERNAL COLOGUARD Negative MANUALLY TRANSCRIBED RESULTS 11/02/2020 us Eze Cooley MD LAB ORDERABLES Final Result Performing Organization Address [facility] Co de Phone Number MANUALLY TRANSCRIBED RESULTS * Colonoscopy (05/01/2017 9:26 AM EDT) 05/01/2017 9:26 AM EDT Narrative PM CARDIOVASCULAR - 05/01/2017 10:03 AM T [facility] Patient Name: Jayy Arroyo Procedure Date No Time: 05/01/2017 Date of : 1955 Admit Type: Outpatient Age: 61 Room: [place] [address] Gender: Male Note Status: Finalized Attending MD: Arun Jackson DO Procedure: Colonoscopy Indications: Screening for colorectal malignant neoplasm Providers: Arun Jackson DO Referring MD: Eze Cooley Medicines: Midazolam 6 mg IV, Meperidine 50 mg IV Complications: No immediate complications. Procedure: After I obtained informed consent, the scope was passed under direct vision. Throughout the procedure, the patient's blood pressure, pulse, and oxygen saturations were monitored continuously. The Olympus [id number] #[id number] adult colonoscope was introduced through the anus and advanced to the cecum, identified by appendiceal orifice and ileocecal valve. The colonoscopy was performed without difficulty. The patient tolerated the procedure well. The quality of the bowel preparation was good. Findings: The perianal and digital rectal examinations were normal. Two sessile polyps were found in the mid sigmoid colon. The polyps were 5 to 6 mm in size. These polyps were removed with a cold snare. Resection and retrieval were complete. A 6 mm polyp was found in the splenic flexure. The polyp was sessile. The polyp was removed with a cold snare. Resection and retrieval were complete. The exam was otherwise without abnormality. Impression: - Two 5 to 6 mm polyps in the mid sigmoid colon, removed with a cold snare. Resected and retrieved. - One 6 mm polyp at the splenic flexure, removed with a cold snare. Resected and retrieved. - The examination was otherwise normal. Recommendation: - Discharge patient to home. - Await pathology results. - Repeat colonoscopy in 3 years for surveillance based on pathology results. - Return to my office in 1 week. Procedure Code(s): --- Professional --- 44646, Colonoscopy, flexible; with removal of tumor(s), polyp(s), or other lesion(s) by snare technique Diagnosis Code(s): --- Professional --- Z12.11, Encounter for screening for malignant neoplasm of colon D12.5, Benign neoplasm of sigmoid colon D12.3, Benign neoplasm of transverse colon (hepatic flexure or splenic flexure) CPT copyright 2016 [employer] [place] [employer]. All rights reserved. The codes documented in this report are preliminary and upon lease attendant review may be revised to meet current compliance requirements. DO Arun Padron DO 05/01/2017 10:02:57 AM Number of Addenda: 0 Note Initiated On: 05/01/2017 9:26 AM Procedure Note Arun Jackson DO - 05/01/2017 [facility] Patient Name: Jayy Arroyo Procedure Date No Time: 05/01/2017 Date of : 1955 Admit Type: Outpatient Age: 61 Room: [place] [address] Gender: Male Note Status: Finalized Attending MD: Arun Jackson DO Procedure: Colonoscopy Indications: Screening for colorectal malignant neoplasm Providers: Arun Jackson DO Referring MD: Eze Cooley Medicines: Midazolam 6 mg IV, Meperidine 50 mg IV Complications: No immediate complications. Procedure: After I obtained informed consent, the scope waspassed under direct vision. Throughout the procedure, the patient's blood pressure, pulse, and oxygensaturations were monitored continuously. The Olympus [id number] #[id number] adult colonoscope was introduced through the anus and advanced to the cecum, identified by appendiceal orifice and ileocecal valve. Thecolonoscopy was performed without difficulty. The patienttolerated the procedure well. The quality of the bowelpreparation was good. Findings: The perianal and digital rectal examinations were normal. Two sessile polyps were found in the mid sigmoid colon. The polypswere 5 to 6 mm in size. These polyps were removed with a cold snare. Resection and retrieval were complete. A 6 mm polyp was found in the splenic flexure. The polyp was sessile. The polyp was removed with a cold snare. Resection and retrieval were complete. The exam was otherwise without abnormality. Impression: - Two 5 to 6 mm polyps in the mid sigmoid colon,removed with a cold snare. Resected and retrieved. - One 6 mm polyp at the splenic flexure, removed witha cold snare. Resected and retrieved. - The examination was otherwise normal. Recommendation: - Discharge patient to home. - Await pathology results. - Repeat colonoscopy in 3 years for surveillancebased on pathology results. - Return to my office in 1 week. Procedure Code(s): --- Professional --- 69423, Colonoscopy, flexible; with removal oftumor(s), polyp(s), or other lesion(s) by snare technique Diagnosis Code(s): --- Professional --- Z12.11, Encounter for screening for malignant neoplasm of colon D12.5, Benign neoplasm of sigmoid colon D12.3, Benign neoplasm of transverse colon (hepatic flexure orsplenic flexure) CPT copyright 2016 [employer] [place] [employer]. All rights reserved. The codes documented in this report are preliminary and upon lease attendant reviewmay be revised to meet current compliance requirements. DO Arun Padron DO 05/01/2017 10:02:57 AM Number of Addenda: 0 Note Initiated On: 05/01/2017 9:26 AM Arun Jackson DO GI PROCEDURE ORDERABLES Fin al Result PM CARDIOVASCULAR from Last 3 Months or Most Recently Relevant to Health Maintenance Insurance MEDICARE [facility] LIFE INSURANCE Advance Directives * Full Code (Latest Code Status on File) Date Activated Date Inactivated Comments 02/12/2025 8:33 PM 02/15/2025 4:27 PM Care Teams Academic Intern Relationship Specialty Start Date End Date Phyllis Ragsdale APRN-NP [address] [place] [address] PCP - General Nurse Practitioner 02/10/25
--- OUTSIDE RECORDS SUMMARY | 2025-05-05 12:18 | XMS_ITS | Encounter Summary ---
Author Organization [facility] Address [id number] [address] [place] [address] Care Team Providers Care Pump Servicer Helper Name Role Phone Phyllis Ragsdale Primary Care Provid er Reason for Visit * Reason Comments Med Refill Encounter Details Date Type Department Care Team (Late st Contact Info) Description 12/04/2023 Refill [facility] [address] [place] [address] 1 [place] [phone] Eze Cooley MD [address] [place] [address], [address] [place], [place] [id number] Social History Tobacco Use Types Packs/Day Years [...] Telephone Encounter - Elizabeth Cook CMA - 12/04/2023 2:58 PM EDT PATIENT NEEDS AN APPOINTMENT FOR FURTHER REFILLS documented in this encounter Plan of Treatment Not on file documented as of this encounter Visit Diagnoses Not on filedocumented in this encounter Additional Health Concerns Assessment Noted Time PHQ-9 Depression Total Score: 0 11/02/19 23 8:00 AM EDT documented as of this encounter Care Teams Pump Servicer Helper Relationship Specialty Start Date End Date Phyllis Ragsdale APRN-NP [address] [place] [address] PCP - General Nurse Practitioner 02/10/25 documented as of this encounter
--- OUTSIDE RECORDS SUMMARY | 2025-05-05 12:18 | XMS_ITS | Encounter Summary ---
Author Organization [facility] Address [facility][id number] [address] [place] [address] Care Team Providers Care Warper Creeler Name Role Phone Phyllis Ragsdale Primary Care Provid er Encounter Details Date Type Department Care Team (Late st Contact Info) Description 02/07/2025 Orders Only [facility] [address] [place] [phone] Transcribe, Orders Support User Pain (Primary Dx) Social History Tobacco Use Types Packs/Day Years Used Date Smoking Tobacco: Former Smokeless Tobacco: Never Alcohol Use Standard Drinks/Week Comments No 0 (1 standard drink = 0.6 oz pur e alcohol) [facility] Utilities Answer Date Recorded In the past 12 months has e [employer], gas, oil, or water company threatened to [...] PHQ-2 Answer Date Recorded Total Score 0 02/11/2025 PRAPARE - Transportation Answer Date Re corded [...] on file documented as of this encounter Results * CT brain without contrast stroke alert (02/07/2025 3:40 PM EDT) us Scanning Provider External IMG CT ORDERABLES Fin al Result documented in this encounter Visit Diagnoses Diagnosis Pain- Primary Generalized pain documented in this encounter Additional Health Concerns Assessment Noted Time PHQ-9 Depression Total Score: 0 11/02/19 23 8:00 AM EDT documented as of this encounter Care Teams Warper Creeler Relationship Specialty Start Date End Date Phyllis Ragsdale APRN-NP [address] [place] [address] PCP - General Nurse Practitioner 02/10/25 documented as of this encounter
--- OUTSIDE RECORDS SUMMARY | 2025-05-05 12:18 | XMS_ITS | Encounter Summary ---
Author Organization [facility] Address [facility][id number] [address] [place] [address] Care Team Providers Care Conference Coordinator Name Role Phone Phyllis Ragsdale Primary Care Provid er Reason for Visit * Reason Comments Med Refill Encounter Details Date Type Department Care Team (Late st Contact Info) Description 12/03/2022 Refill [facility] [address] [place] [address] 1 [place] [phone] Eze Cooley MD [address] [place] [address], [address] [place], [place] [id number] Social History Tobacco Use Types Packs/Day Years [...] Telephone Encounter - Elizabeth Cook CMA - 12/03/2022 7:49 AM EDT Sent to a different pharmacy documented in this encounter Plan of Treatment Not on file documented as of this encounter Visit Diagnoses Not on filedocumented in this encounter Additional Health Concerns Assessment Noted Time PHQ-9 Depression Total Score: 0 11/02/19 8:00 AM EDT documented as of this encounter Care Teams Conference Coordinator Relationship Specialty Start Date End Date Phyllis Ragsdale APRN-NP [address] [place] [address] PCP - General Nurse Practitioner 02/10/25 documented as of this encounter
--- OUTSIDE RECORDS SUMMARY | 2025-05-05 12:18 | XMS_ITS | Encounter Summary ---
Author Organization [facility] Address [id number] [address] [place] [address] Care Team Providers Care Tip Bander Name Role Phone Phyllis Ragsdale Primary Care Provid er Reason for Visit * Reason Comments Med Refill Encounter Details Date Type Department Care Team (Late st Contact Info) Description 09/16/2023 Refill [facility] [address] [place] [address] 1 [place] [phone] Eze Cooley MD [address] [place] [address], [address] [place], [place] [id number] Social History Tobacco Use Types Packs/Day Years [...] Telephone Encounter - Elizabeth Cook CMA - 09/16/2023 10:33 AM EST Too soon to refill documented in this encounter Plan of Treatment Not on file documented as of this encounter Visit Diagnoses Not on filedocumented in this encounter Additional Health Concerns Assessment Noted Time PHQ-9 Depression Total Score: 0 11/02/19 23 8:00 AM EDT documented as of this encounter Care Teams Tip Bander Relationship Specialty Start Date End Date Phyllis Ragsdale APRN-NP [address] [place] [address] PCP - General Nurse Practitioner 02/10/25 documented as of this encounter
--- OUTSIDE RECORDS SUMMARY | 2025-05-05 12:18 | XMS_ITS | Encounter Summary ---
Author Organization [facility] Address [facility][id number] [address] [place] [address] Care Team Providers Care Project Analyst Name Role Phone Phyllis Ragsdale Primary Care Provid er Encounter Details Date Type Department Care Team (Late st Contact Info) Description 10/29/2021 Orders Only [facility] [address] [facility] [address] [place] [phone] Inga Cabral RMA Acquired hypothyroidism; Benign prostatic hyperplasia with weak urinary stream; Mixed hyperlipidemia; Primary hypertension Social History Tobacco Use Types Packs/Day Years [...] Exposure Response Date Recorded In the last 10 days, have yo u been in contact with someone who was confirmed or suspected to have Coronavirus/COVID-19? No / Unsure 10/28/2021 8:09 AM EDT documented as of this encounter Plan of Treatment Not on file documented as of this encounter Procedures Procedure Name Priority Date/Time Associated Diagnosis Comments THYROID PROFILE INCLUDES TSH FT4 Routine 10/28/2021 Acquired hypothyroidism PROSTATIC SPECIFIC ANTIGEN, DIAGNOSTIC Routine 10/28/2021 Benign prostatic hyperplasia with weak urinary stream LIPID PROFILE Routine 10/28/2021 Mixed hyperlipidemia COMPREHENSIVE METABOLIC PANEL Routine 10/28/2021 Primary hypertension documented in this encounter Results * Comprehensive metabolic panel (10/28/2021) Blood 10/28/2021 Eze Cooley MD LAB BLOOD ORDERABLES Final Re sult Performing Organization Address [facility] Co de Phone Number [facility] * (ABNORMAL) Lipid panel (10/28/2021) External Cholesterol 181 150 - 200 [facility] External Cholesterol:Hdl 5.8(A) 1.0 - 5.0 [facility] External Hdl Cholesterol 31(A) >=39 [facility] External Ldl (Calc) 122 <=130 [facility] External Triglycerides 139 27 - 150 [facility] External Very Low Lipoprotein 28 0 - 30 [facility] Blood 10/28/2021 Eze Cooley MD LAB BLOOD ORDERABLES Final Re sult Performing Organization Address [facility] de Phone Number [facility] * Prostatic specific antigen, diagnostic (10/28/2021) Psa 0.82 0.00 - 4.00 [facility] Blood 10/28/2021 Eze Cooley MD LAB BLOOD ORDERABLES Final Re sult Performing Organization Address [facility] Co de Phone Number [facility] * Thyroid profile includes TSH FT4 (10/28/2021) 10/28/2021 Eze Cooley MD LAB BLOOD ORDERABLES Final Re sult Performing Organization Address [facility]/ZIP Co de Phone Number [facility] documented in this encounter Visit Diagnoses Diagnosis Acquired hypothyroidism Unspecified hypothyroidism Benign prostatic hyperplasia with weak urinary stream Mixed hyperlipidemia Primary hypertension Unspecified essential hypertension documented in this encounter Additional Health Concerns Assessment Noted Time PHQ-9 Depression Total Score: 0 10/29/19 22 8:00 AM EDT documented as of this encounter Care Teams Project Analyst Relationship Specialty Start Date End Date Phyllis Ragsdale APRN-[facility]AR[facility] [address] [place] [address] PCP - General Nurse Practitioner 02/10/25 documented as of this encounter
--- OUTSIDE RECORDS SUMMARY | 2025-05-05 12:18 | XMS_ITS | Patient Health Record ---
Author Organization [facility] Address [address] [place] [address] Care Team Providers Care Signal Repairer Name Role Phone Neno Beaulieu Unavailable [phone] EMERGENCY ROOM, ER Unavailable Unavailable Allergies No Known Allergies Reason For Referral No Information Social History Tobacco Use: Social History Observation Description Date Details (start date - stop date) Never Smoker NA - NA Smoking History Question Answer Notes Smoking Status NonSmoker Problems Problem Type SNOMED Code ICD Code Onset Dates Problem Status W/U Status Risk Notes Problem Laceration of left hand (93661128090220483) Laceration of left hand (S61.412A) Active confirmed Problem Laceration of left wrist (09710230879137724) Laceration of left wrist (S61.512A) Active confirmed Problem Strain of other extensor muscle, fascia and tendon at forearm level, left arm, initial encounter (S56.512A) Active confirmed Problem Laceration of extensor muscle, fascia and tendon of left middle finger at wrist and hand level, initial encounter (S66.323A) Active confirmed Problem [id number] Laceration of extensor muscle, fascia and tendon of left middle finger at wrist and hand level, subsequent encounter (S66.323D) Active confirmed Problem Laceration of extensor muscle, fascia and tendon of left ring finger at wrist and hand level, initial encounter (S66.325A) Active confirmed Problem [id number] Laceration of extensor muscle, fascia and tendon of left ring finger at wrist and hand level, subsequent encounter (S66.325D) Active confirmed Problem [id number] Laceration of unspecified muscle, fascia and tendon at wrist and hand level, left hand, initial encounter (S66.922A) Active confirmed Plan Of Treatment Pending Test Test Name Order Date CBC with diff, BMP, EKG 04/21/2023 [facility]- PT/OT EVAL AND TREAT 3X/WEEK FOR 6 WEEKS 05/08/2023 Insurance Providers Payer Name Payer Address Payer Phone Subscriber Number Group Number Insured Name Patient Relationship to Insured Coverage Start Date Coverage End Date [place] [place] [address] [id number] STU [place] Self - patient is the insured 9 Medical (General) History Surgical History Surgery Date(Month/Year) Repair of tendon or muscle e xtensor forearm and or wrist of the left side 04/21/2023
--- OUTSIDE RECORDS SUMMARY | 2025-05-05 12:18 | XMS_ITS | Encounter Summary ---
Author Organization [facility] Address [facility] [id number] [address] [place] [address] Care Team Providers Care Aquatic Habitat Biologist Name Role Phone Phyllis Ragsdale Primary Care Provid er Reason for Visit * Reason Comments Med Refill Encounter Details Date Type Department Care Team (Late st Contact Info) Description 11/17/2022 Refill [facility] [address] [place] [address] [address] [place] [id number] Eze Cooley MD [address] [place] [address], [address] [place], [place] [id number] Social History Tobacco Use Types Packs/Day Years [...] AM EDT documented as of this encounter Miscellaneous Notes * Telephone Encounter - Elizabeth Cook CMA - 11/17/2022 10:36 AM EDT 1 years worth of medication was given at another pharmacy documented in this encounter Plan of Treatment Not on file documented as of this encounter Visit Diagnoses Not on filedocumented in this encounter Additional Health Concerns Assessment Noted Time PHQ-9 Depression Total Score: 0 11/02/19 23 8:00 AM EDT documented as of this encounter Care Teams Aquatic Habitat Biologist Relationship Specialty Start Date End Date Phyllis Ragsdale APRN-NP [address] [place] [address] PCP - General Nurse Practitioner 02/10/25 documented as of this encounter
--- OUTSIDE RECORDS SUMMARY | 2025-05-05 12:18 | XMS_ITS | Clinical Summary ---
Author Organization [facility] Address [address], [address] [place] [address] Care Team Providers Care Tumbling Instructor Name Role Phone Eze Cooley MD Primary Care Provider [phone] Allergies No known active allergies Medications levothyroxine (SYNTHROID) 150 MCG tablet Take 1 tablet by mouth Daily Active losartan (COZAAR) 100 MG tablet Take 1 tablet by mouth daily Active HYDROcodone-chance taminophen (NORCO) 5-325 MG per tablet Take 1 tablet by mouth every 6 hours as needed for Pain. Max Daily Amount: 4 tablets Active cephALEXin (KEFLEX) 500 MG capsule Take 1 capsule by mouth 4 times daily Active cephALEXin (KEFLEX) 500 MG capsule Take 1 capsule by mouth 4 times daily 10 capsule 04/21/2023 Active Social History Tobacco Use Types Packs/Day Years Used Date Smoking Tobacco: Never Smokeless Tobacco: Never Tobacco Cessation:Counseling Given: Not Answered Alcohol Use Standard Drinks/Week Comments Never 0 (1 standard drink = 0.6 oz pur e alcohol) Interpersonal Safety Domain Source: IP Abuse Scr eening Answer Date Recorded Read-Only, Retired: Physical Abuse Denies 04/21/2023 Read-Only, Retired: Verbal Abuse Denies 04/21/2023 Read-Only, Retired: Emotional abuse Denies 04/21/2023 Read-Only, Retired: Financial Abuse Denies 04/21/2023 Read-Only, Retired: Sexual abuse Denies 04/21/2023 Sex and Gender Information Value Date Recorded Sex Assigned at Not on file Legal Sex Male 10:30 AM EDT Gender Identity Not on file Sexual Orientation Not on file Last Filed Vital Signs Vital Sign Reading Time Taken Comments Blood Pressure 144/71 04/21/2023 2:45 PM EDT Pulse 77 04/21/2023 3:05 PM EDT Temperature 36.5 C (97.7 F) 04/21/2023 2:45 PM EDT Respiratory Rate 24 04/21/2023 3:05 PM EDT Oxygen Saturation 97% 04/21/2023 3:05 PM EDT Inhaled Oxygen Concentration - - Weight 97.2 kg (214 lb 3.2 oz) 04/21/2023 11:00 AM EDT Height 188 cm (6' 2 ) 04/21/2023 11:00 AM EDT Body Mass Index 27.5 04/21/2023 11:00 AM EDT Plan of Treatment Health Maintenance Due Date Last Done Comments Flu vaccine (#1) 02/28/2025 COVID-19 Vaccine ( - 2023-2 5 season) 2025 Respiratory Syncytial Virus (RSV) or age 60 yrs+ (1 - 1-dose 75+ series) 2029 DTaP/Tdap/Td vaccine (2 - Td or Tdap) 07/26/2029 07/26/2019 GFR test (Diabetes, CKD 3-4, OR last GFR 15-59) Discontinued 04/21/2023 Polio vaccine Aged Out No longer elicindy hardy based on patient's age to complete this topic Procedures Procedure Name Priority Date/Time Associated Diagnosis Comments BASIC METABOLIC PANEL Routine 04/21/2023 10:17 AM EDT from Last 3 Months or Most Recently Relevant to Health Maintenance Results * (ABNORMAL) Basic Metabolic Panel (04/21/2023 10:17 AM EDT) Sodium 135 135 - 144 mmol/L 04/21/2023 10:17 AM EDT [facility] Potassium 4.1 3.7 - 5.3 mmol/L 04/21/2023 10:17 AM EDT [facility] Chloride 100 98 - 107 mmol/L 04/21/2023 10:17 AM EDT [facility] CO2 24 20 - 31 mmol/L 04/21/2023 10:17 AM EDT [facility] Anion Gap 11 9 - 17 mmol/L 04/21/2023 10:17 AM EDT [email or web address] Glucose 131(H) 70 - 99 mg/dL 04/21/2023 10:17 AM EDT [facility] BUN 29(H) 8 - 23 mg/dL 04/21/2023 10:17 AM EDT [facility] Creatinine 1.4(H) 0.7 - 1.2 mg/dL 04/21/2023 10:17 AM EDT [facility] Est, Glom Filt Rate 55(L) >60 mL/min/1.7 3m2 04/21/2023 10:17 AM EDT [facility] Comment: These results are not intended for use in patients <18 years of age. eGFR results are calculated without a race factor using the 2020 CKD-EPI equation. Careful clinical correlation is recommended, particularly when comparing to results calculated using previous equations. The CKD-EPI equation is less accurate in patients with extremes of muscle mass, extra-renal metabolism of creatine, excessive creatine ingestion, or following therapy that affects renal tubular secretion. BUN/Creatinine Ratio 21(H) 9 - 20 04/21/2023 10:17 AM EDT [facility] Calcium 9.3 8.6 - 10.4 mg/dL 04/21/2023 10:17 AM EDT [facility] 04/21/2023 10:1 7 AM EDT 04/21/2023 10:18 AM EDT Neno Beaulieu MD CHEMISTRY ORDERABLES Final Result [email or web address] [address] [place] [address], [facility] [phone] from Last 3 Months or Most Recently Relevant to Health Maintenance Insurance MEDICARE [employer] Care Teams Tumbling Instructor Relationship Specialty Start Date End Date Eze Cooley MD PCP - General Internal Medicine 04/21/23
--- OUTSIDE RECORDS SUMMARY | 2025-05-05 12:18 | XMS_ITS | Clinical Summary ---
Author Organization [facility] Address [address] [place], [place] [id number] Care Team Providers Care Hvac Refrigeration Technician Name Role Phone Yovanny Funez MD Primary Care Provider [phone] Social History Tobacco Use Types Packs/Day Years Used Date Smoking Tobacco: Never Assessed Sex and Gender Information Value Date Recorded Sex Assigned at Not on file Legal Sex Male 9:55 AM EST Gender Identity Not on file Sexual Orientation Not on file Plan of Treatment Health Maintenance Due Date Last Done Comments Anxiety Screening 1972 Depression Screening 1972 Hepatitis C Screening 1972 DTaP,Tdap,Td Vaccine (1 - Tdap) [address] Colonography 1999 Cologuard (FIT-DNA) 1999 Colonoscopy 1999 Colorectal Cancer Screening 1999 Diabetes Screening 1999 Fecal Occult Blood 1999 Sigmoidoscopy 1999 Pneumococcal Vaccine: 50+ (1 of 1 - PCV) 2004 Shingrix Vaccine (1 of 2) 2004 Advance Directive Discussion 07/31/2024 Influenza Vaccine (#1) 2025 RSV Vaccine (1 - 1-dose 75+ series) 2029 Insurance [address] [place] [address] MMO [employer] PPO Care Teams Hvac Refrigeration Technician Relationship Specialty Start Date End Date Yovanny Funez MD [address] [place] [address] PCP - General 03/19/04
--- OUTSIDE RECORDS SUMMARY | 2025-05-05 12:18 | XMS_ITS | Encounter Summary ---
Author Organization [facility] Address [facility] [id number] [address] [place] [address] Care Team Providers Care Portable Grinding Machine Operator Name Role Phone Phyllis Ragsdale Primary Care Provid er Encounter Details Date Type Department Care Team (Late st Contact Info) Description 11/02/2022 Orders Only [facility] [address] [place] [phone] Inga Cabral RMA Acquired hypothyroidism; Benign prostatic hyperplasia without lower urinary tract symptoms; Primary hypertension; Mixed hyperlipidemia Social History Tobacco Use Types Packs/Day Years [...] Comments THYROID PROFILE INCLUDES TSH FT4 Routine 11/01/2022 Acquired hypothyroidism PROSTATIC SPECIFIC ANTIGEN, DIAGNOSTIC Routine 11/01/2022 Benign prostatic hyperplasia without lower urinary tract symptoms LIPID PROFILE Routine 11/01/2022 Mixed hyperlipidemia COMPREHENSIVE METABOLIC PANEL Routine 11/01/2022 Primary hypertension documented in this encounter Results * (ABNORMAL) Lipid panel (11/01/2022) External Cholesterol 210(A) <=200 [facility] External Cholesterol:Hdl 7.2(A) <=4.97 [facility] External Hdl Cholesterol 29(A) >=39 [facility] External Triglycerides 445(A) <=149 [facility] Blood 11/01/2022 Eze Cooley MD LAB BLOOD ORDERABLES Final Re sult Performing Organization Address [facility]/ZIP Co de Phone Number [facility] * Comprehensive metabolic panel (11/01/2022) Blood 11/01/2022 Eze Cooley MD LAB BLOOD ORDERABLES Final Re sult [facility] * Prostatic specific antigen, diagnostic (11/01/2022) Psa 0.71 <=4.00 [facility] Blood 11/01/2022 Eze Cooley MD LAB BLOOD ORDERABLES Final Re sult Performing Organization Address [facility]/ZIP Co de Phone Number [facility] * Thyroid profile includes TSH FT4 (11/01/2022) 11/01/2022 us Eze Cooley MD LAB BLOOD ORDERABLES Final Re sult [facility] documented in this encounter Visit Diagnoses Diagnosis Acquired hypothyroidism Unspecified hypothyroidism Benign prostatic hyperplasia without lower urinary tract symptoms Primary hypertension Unspecified essential hypertension Mixed hyperlipidemia documented in this encounter Additional Health Concerns Assessment Noted Time PHQ-9 Depression Total Score: 0 11/02/19 23 8:00 AM EDT documented as of this encounter Care Teams Portable Grinding Machine Operator Relationship Specialty Start Date End Date Phyllis Ragsdale APRN-DARWIN [address] [place] [address] PCP - General Nurse Practitioner 02/10/25 documented as of this encounter
--- OUTSIDE RECORDS SUMMARY | 2025-05-05 12:18 | XMS_ITS | Encounter Summary ---
Author Organization [facility] Address [facility] [id number] [address] [place] [address] Care Team Providers Care Hot Wort Settler Name Role Phone Phyllis Ragsdale Primary Care Provid er Reason for Visit * Reason Comments Med Refill Encounter Details Date Type Department Care Team (Late st Contact Info) Description 12/30/2022 Refill [facility] [address] [place] [address] 1 [place] [phone] Eze Cooley MD [address] [place] [address], [address] [place], [place] [id number] Social History Tobacco Use Types Packs/Day Years [...] documented as of this encounter Care Teams Hot Wort Settler Relationship Specialty Start Date End Date Phyllis Ragsdale APRN-DARWIN [address] [place] [address] PCP - General Nurse Practitioner 02/10/25 documented as of this encounter
--- OUTSIDE RECORDS SUMMARY | 2025-05-05 12:18 | XMS_ITS | Encounter Summary ---
Author Organization [facility] Address [address] [place] [address] Care Team Providers Care Electric Motor Mechanic Name Role Phone Yovanny Funez MD Primary Care Provider [phone] Source Comments In the event this information is protected by the Federal Confidentiality of Alcohol and Drug AbusePatient Records regulations: The Federal rules restrict any use of the information to criminally investigate or prosecute any alcohol or drug abuse patient.[facility] Encounter Details Date Type Department Care Team (Latest Contact Info) Description 05/05/2004 Prob Sum Review Provider, Cc Social History Tobacco Use Types Packs/Day Years [...] Diagnoses Not on filedocumented in this encounter Care Teams Electric Motor Mechanic Relationship Specialty Start Date End Date Yovanny Funez MD [address] [place] [address] PCP - General 03/19/04 documented as of this encounter
--- OUTSIDE RECORDS SUMMARY | 2025-05-05 12:18 | XMS_ITS | Clinical Summary ---
Author Organization [facility] Address [address] [place] [address] Care Team Providers Care Heavy Threader Name Role Phone Unavailable Primary Care Provider Unavailabl e Social History Tobacco Use Types Packs/Day Years Used Date Smoking Tobacco: Never Assessed Sex and Gender Information Value Date Recorded Sex Assigned at Not on file Legal Sex Male 5:49 AM EDT Gender Identity Not on file Sexual Orientation Not on file Plan of Treatment Not on file
--- OUTSIDE RECORDS SUMMARY | 2025-05-05 12:18 | XMS_ITS | Encounter Summary ---
Author Organization [facility] Address [facility] [id number] [address] [place] [address] Care Team Providers Care Frame Changer Name Role Phone Phyllis Ragsdale Primary Care Provid er Encounter Details Date Type Department Care Team (Late st Contact Info) Description 02/12/2025 Orders Only [facility] [place] [address] External, Scanning Provider Pain (Primary Dx) Social History Tobacco Use Types Packs/Day Years Used Date Smoking Tobacco: Former Smokeless Tobacco: Never Alcohol Use Standard Drinks/Week Comments No 0 (1 standard drink = 0.6 oz pur e alcohol) [facility] Utilities Answer Date Recorded In the past 12 months has e electric, gas, oil, or water company [...] on file documented as of this encounter Functional Status documented as of this encounter Mental Status * Question Answer Entry Date Author Overall Cognitive Status L 02/13/2025 8:46 AM EDT Ana De Guzman, PT * Question Answer Entry Date Author Overall Cognitive Status [facility] 02/12/2025 10:25 AM EDT Tosha Erwin, CCC-METEOROLOGY INSTRUCTOR documented in this encounter Plan of Treatment Not on file documented as of this encounter Results * Vas carotid duplex bilateral (02/10/2025 6:35 PM EDT) us Scanning Provider External CV VASCULAR ORDERABLE S Final Result Performing Organization Address City/State/[facility] Co de Phone Number [facility] * Non [facility] (02/10/2025 12:40 PM EDT) us Scanning Provider External CV ECHO ORDERABLES Fi nal Result [facility] * Ultrasound retroperitoneal complete (02/07/2025 6:55 PM EDT) us Scanning Provider External IMG US ORDERABLES Fin al Result documented in this encounter Visit Diagnoses Diagnosis Pain- Primary Generalized pain documented in this encounter Additional Health Concerns Assessment Noted Time PHQ-9 Depression Total Score: 0 02/12/20 7:08 PM EDT documented as of this encounter Care Teams Frame Changer Relationship Specialty Start Date End Date Phyllis Ragsdale APRN-DARWIN [address] [place] [address] PCP - General Nurse Practitioner 02/10/25 documented as of this encounter
--- OUTSIDE RECORDS SUMMARY | 2025-05-05 12:18 | XMS_ITS | Encounter Summary ---
Author Organization [facility] Address [facility] [id number] [address] [place] [address] Care Team Providers Care Hone Operator Name Role Phone Phyllis Ragsdale Primary Care Provid er Encounter Details Date Type Department Care Team (Late st Contact Info) Description 02/11/2025 Orders Only [facility] [address] [place] [phone] Transcribe, Orders Support User Pain (Primary Dx) Social History Tobacco Use Types Packs/Day Years Used Date Smoking Tobacco: Former Smokeless Tobacco: Never Alcohol Use Standard Drinks/Week Comments No 0 (1 standard drink = 0.6 oz pur e alcohol) [facility] Utilities Answer Date Recorded In the past 12 months has e [employer], gas, oil, or water company threatened to [...] documented as of this encounter Functional Status * Question Answer Date of Assessment Author Functional Status Independent 02/13/2025 3:22 PM EDT Kacy Sauceda RN * Audit-C Score Answer Date of Assessment Author 0 02/11/2025 7:07 PM EDT Ra beny Harrington RN * Question Answer Date of Assessment Author Q1: How often do you have a drink containing alcohol? Never 02/11/2025 7:07 PM EDT Adriana Harrington RN Q2: How many drinks containing alcohol do you have on a typical day when you are drinking? Patient does not drink 02/11/2025 7:07 PM EDT Adriana Harrington RN Q3: How often do you have six or more drinks on one occasion? Never 02/11/2025 7:07 PM EDT Adriana Harrington RN documented as of this encounter Mental Status * Question Answer Entry Date Author Overall Cognitive Status WF 02/13/2025 8:46 AM EDT Ana De Guzman, PT * Question Answer Entry Date Author Overall Cognitive Status [facility] 02/12/2025 10:25 AM EDT Tosha Erwin CCC-SHUTTLE HAND documented in this encounter Plan of Treatment Not on file documented as of this encounter Results * MRA neck without contrast (02/10/2025 11:35 AM EDT) us Scanning Provider External IMG MRI ORDERABLES Fi nal Result * MR brain without contrast (02/10/2025 11:10 AM EDT) us Scanning Provider External IMG MRI ORDERABLES Fi nal Result * MRA head without contrast (02/10/2025 11:05 AM EDT) us Scanning Provider External IMG MRI ORDERABLES Fi nal Result documented in this encounter Visit Diagnoses Diagnosis Pain- Primary Generalized pain documented in this encounter Additional Health Concerns Assessment Noted Time PHQ-9 Depression Total Score: 0 02/12/20 25 7:08 PM EDT documented as of this encounter Care Teams Hone Operator Relationship Specialty Start Date End Date Phyllis Ragsdale APRN-NP [address] [place] [address] PCP - General Nurse Practitioner 02/10/25 documented as of this encounter
[2025-05-05 15:32] LABS: TSH W/ REFLEX FT4 2.041 uIU/mL (0.358-3.740)
== END 2025-05-05 12:16 | disposition home or self-care (01) ==
LOC: LAB 12:16
PROVIDERS: PCP Nurse Practitioner Family; Visit Provider Nurse Practitioner Family
DX: Z12.5 Encounter for screening for malignant neoplasm of prostate (principal); E89.0 Postprocedural hypothyroidism
CPT/HCPCS: 36415; 84443; G0103